=== PATIENT | female | born 1935 | race Caucasian/White ===

== ENCOUNTER 2021-11-22 | Outpatient (REF) | payer MEDICARE, OTHER, SELFPAY ==
[2021-11-22 15:53] LABS: Appearance Urine CLOUDY; Color Urine RED; Glucose Urine UA NEG (NEG); Leukocyte Esterase Urine 1+ (NEG); Nitrite Urine NEG (NEG); PH 6.5 (5.0-8.0); Specific Gravity - Urine 1.025 (1.005-1.025); UACC Culture Trigger YES; Urine Blood 3+ (NEG); Urine Ketones NEG (NEG); Urine Protein 2+ MG/DL (NEG-TRACE)
[2021-11-22 15:57] LABS: RBC Urine TNTC /HPF (0); Squamous Epithelial Cell Urine 2+ /LPF
== END 2021-11-22 00:01 | disposition home or self-care (01) ==
LOC: HO.LNP
PROVIDERS: Visit Provider Physician Assistant Medical
DX: N39.0 Urinary tract infection, site not specified (principal)
CPT/HCPCS: 81001; 87086

== ENCOUNTER 2023-10-12 15:10 | Outpatient (AMB) | payer MEDICARE, OTHER, SELFPAY ==
--- NOTE | 2023-10-12 15:47 | A.OFFPC_ITS ---
Vital Signs 10/12/23 15:49 Height 5 ft 4 in Weight 192 lb BMI 33.0 BP 120/84 Blood Pressure Location Lt brachial Position Sitting Pulse 72 Pulse Source Pulse Oximeter Pulse Oximetry (%) 98 Oxygen Delivery Method Room Air Intake Visit Reasons: [employer] Request PE Intake Note: Patient here to establish care Allergies atorvastatin [From LIPITOR] Allergy (Severe, Unverified 10/12/23 16:07) ANGIOEDEMA doxycycline [DOXYCYCLINE] Allergy (Severe, Unverified 10/12/23 16:07) ANAPHYLAXIS, ANGIOEDEMA Medication List - Last Reconciled 10/12/23 by ELIU Sandra-EDMAR amlodipine 5 mg PO DAILY aspirin 81 mg PO DAILY dulaglutide (Trulicity) mg subcut escitalopram oxalate 5 mg PO DAILY hydrochlorothiazide 12.5 mg PO DAILY levothyroxine 75 mcg PO DAILY lorazepam 0.5 mg PO DAILY PRN metformin 500 mg PO BID metoprolol tartrate 50 mg PO BID mirtazapine 7.5 mg PO BEDTIME rosuvastatin 20 mg PO BEDTIME Tobacco use date assessed: 10/12/23 Fall risk assessment: No Falls in past year Last assessed Fall Risk: 10/12/23 Dental Screening Dental Screen Date: 10/12/23 Did you have a dental visit in the last 12 months?: Yes Did you have a dental problem in the last 6 months where you did not have access to dental care?: No Was dental information given to patient?: Patient has dentist HPI [employer] Request PE HPI Details New pt is here for a PE. Will order labs. Pt does not need further mammograms. Pt is a diabetic, sees endo. She also follows up with cardiology. PFSH Surgical History Hx of appendectomy Hx of hysterectomy Social History Housing: Apartment Patient Tobacco Use Status: Former Tobacco user e-Cigarette/Vaping Use: Never Used Current occupational status: retired Cognitive needs: No Hearing needs: No Vision needs: Yes Questionnaire PHQ-9 Over the last 2 weeks, how often have you been bothered by any of the following problems? 1. Little interest or pleasure in doing things: not at all 2. Feeling down, depressed, or hopeless: not at all 3. Trouble falling or staying asleep, or sleeping too much: not at all 4. Feeling tired or having little energy: not at all 5. Poor appetite or overeating: not at all 6. Feeling bad about yourself - or that you are a failure or have let yourself or your family down: not at all 7. Trouble concentrating on things, such as reading the newspaper or watching television: not at all 8. Moving or speaking so slowly that other people could have noticed. Or the opposite - being so fidgety or restless that you have been moving around a lot more than usual: not at all 9. Thoughts that you would be better off or of hurting yourself in some way: not at all Total score: 0 Depression Screening Interpretation: Negative Depression Screening Done: Yes 16931 - PHQ-9 Billing: Yes Source: Developed by Drs. Fidel Rashid, Ale Clinton, Hank Cox and colleagues, with an educational margo from [employer]. Thrive Questionnaire Date Thrive assessed: 10/12/23 I am a: Patient What is your living situation today?: I have a steady place to live Within the past 12 months, did the food you bought not last and you didn't have the money to get more?: Never true Within the past 12 months, did you worry whether your food would run out before you got money to buy more?: Never true Do you have trouble paying for medicines?: No Do you have trouble getting transportation to medical appointments?: No Do you have trouble paying your heating and electricity bill?: No Do you have trouble taking care of your child, family member or friend?: No Do you have trouble with day-to-day activities such as bathing, preparing meals, shopping, managing finances, etc.?: No Are you currently unemployed and looking for a job?: No Are you interested in more education?: No Please select the resources that you would like help with: None THRIVE Score: 0 AUDIT C Alcohol Use Questionnaire (AUDIT-C) 1. How often do you have a drink containing alcohol?: Never 3. How often do you have six or more drinks on one occasion?: Never Total Score: 0 Score Reviewed/Action Taken: No CARLOS-7 AMB Questionnaire CARLOS-7 Date CARLOS - 7 assessed: 10/12/23 Feeling nervous, anxious, or on edge: 2 = More than half the days Not being able to stop or control worryin = Not at all Worrying too much about different things: 0 = Not at all Trouble relaxin = Not at all Being so restless that it is hard to sit still: 0 = Not at all Becoming easily annoyed or irritable: 0 = Not at all Feeling afraid as if something awful might happen: 0 = Not at all Total CARLOS-7 score (0-4 normal; 5-9 mild; 10-14 moderate; 15-21 severe): 2 Source: Developed by Drs. Fidel Rashid, Ale Clinton, Hank Cox and colleagues, with an educational margo from [employer]. Review of Systems Const Denies chills and Denies fever(s) Eyes Denies blurry vision ENT Denies vertigo, Denies dizziness and Denies sore throat Card Denies chest pain at rest, Denies chest pain with activity, Denies diaphoresis, Denies dyspnea and Denies dyspnea on exertion Resp Denies cough, Denies dyspnea, Denies dyspnea on exertion and Denies wheezing GI Denies abdominal pain, Denies melena, Denies hematochezia, Denies constipation, Denies diarrhea and Denies loose stools Denies hematuria Musc Denies numbness and Denies tingling Skin/Breast Denies lesions Neuro Denies vertigo, Denies dizziness, Denies numbness and Denies tingling Psych Denies anxiety, Denies depression, Denies homicidal ideation, Denies suicidal ideation and Denies other (substance abuse) Aller/Immun Denies wheezing Physical exam (Primary Care) Vital Signs: Last Vital Signs Pulse 72 10/12/23 15:49 BP 120/84 10/12/23 15:49 Pulse Ox 98 10/12/23 15:49 Oxygen Delivery Method Room Air 10/12/23 15:49 BMI result Body Mass Index 33.0 Tobacco/Smoking Status: Tobacco use Status Tobacco use date assessed 10/12/23 10/12/23 15:56 Patient Tobacco Use Status Former Tobacco user 10/12/23 15:56 e-Cigarette/Vaping Use Never Used 10/12/23 15:56 PHQ-9: PHQ-9 Score PHQ-9: Total score 0 10/12/23 16:10 Depression Screening Interpretation: Negative Thrive Assessment: Date of Thrive Assessment Date Thrive assessed 10/12/23 10/12/23 15:54 Const General: cooperative Nutritional Appearance: well nourished Orientation/consciousness: patient oriented x3 HENMT Head: Yes normal to inspection, Yes normocephalic and Yes atraumatic Ears: TM's normal bilaterally Eyes General: appearance normal, both eyes and all related structures Alignment and Position: alignment normal and position normal Neck Neck: Yes normal visual inspection and Yes no lymphadenopathy Thyroid: Thyroid normal Resp Effort & Inspection: normal respiratory effort Auscultation: clear to auscultation bilaterally Cardio Rate: regular rate Rhythm: regular rhythm Heart sounds: S1 normal heart sound present, S2 normal heart sound present and Murmur heart sound present systolic GI Palpation (GI): Soft to palpation and nontender Auscultation: normal bowel sounds Skin Rashes: no rashes Neuro General: patient oriented x3, moves all extremities, no focal motor deficits and deep tendon reflexes 2+ bilaterally Romberg Test: Negative Psych Appearance: grossly normal Mental Status: mental status grossly normal Speech and movement: Normal speech and movement present Affect: normal affect Attitude: cooperative Thought process: Normal thought process present Thought content: Normal thought content present Insight: Good insight present (Psych) Judgement: Good judgement present (Psych) Assessment and Plan Assessment & Plan (1) Physical exam: Code(s): Z. - Encounter for general adult medical examination without abnormal fin dings Plan: Labs ordered Plan The patient agreed to the use of a medical receptionist for this encounter. Scribed for AIDEN Campbell by Daxa Gonzalez medical receptionist, on 10/12/2023 at 16:05 EST. Orders: Orders Comprehensive One[employer]. Panel Fast Today Z00.00 - Encounter for general adult medical examination without abnormal findings TSH reflex Free T4 Today Z00.00 - Encounter for general adult medical examination without abnormal findings UA CC w/rflx Micro + Cult Today Z00.00 - Encounter for general adult medical examination without abnormal findings Vitamin D 25-OH Total Today Z00.00 - Encounter for general adult medical examination without abnormal findings Complete Blood Count Auto Diff Today Z00.00 - Encounter for general adult medical examination without abnormal findings Lipid Panel Today Z00.00 - Encounter for general adult medical examination without abnormal findings Coding Level of Care Code New Pt Prev Care >65yr (18149) Diagnoses Physical exam Z00.00
[2023-10-12 15:49] VITALS: BP 120/84; PULSE 72; O2SAT 98; BMI 33.0
== END 2023-10-12 16:22 | disposition home or self-care (01) ==
PROVIDERS: PCP Nurse Practitioner Family; Visit Provider Nurse Practitioner Family
DX: Z00.00 Encounter for general adult medical examination without abnormal findings (principal)
CPT/HCPCS: 99387

== ENCOUNTER 2024-03-03 14:21 | Outpatient (REF) | payer MEDICARE, OTHER, SELFPAY ==
--- NOTE | ~2024-03-03 | XR_ITS ---
EXAMINATION: XR ANKLE, RIGHT XR FOOT, RIGHT CLINICAL INFORMATION: Pain. COMPARISON: No prior study available for comparison. TECHNIQUE: AP, oblique, and lateral views of the right ankle and foot. FINDINGS: RIGHT ANKLE: Minimally displaced, oblique fracture through the distal aspect of the lateral malleolus with the fracture gap measuring up to 0.1 cm. No additional fracture. No dislocation. No joint space narrowing or marginal osteophytes. No osseous erosion. Prominent circumferential soft tissue swelling. RIGHT FOOT: Mildly displaced, oblique fracture through the base of the fifth metatarsal with the fracture gap measuring up to 0.1 cm. The fracture line contacts the fifth metatarsophalangeal articular surface. Possible additional nondisplaced, oblique fracture through the proximal metaphysis of the fourth metatarsal. No dislocation. Mild joint space with small marginal osteophytes at the medial cuneonavicular joint and the first metatarsophalangeal joint. No osseous erosion. Plantar and dorsal calcaneal spurs. XR/XR foot RT min 3V IMPRESSION: RIGHT ANKLE: Minimally displaced, oblique fracture through the distal aspect of the lateral malleolus. Prominent circumferential soft tissue swelling. RIGHT FOOT: 1. Mildly displaced, oblique fracture through the base of the fifth metatarsal which contacts the fifth metatarsophalangeal articular surface. Possible nondisplaced, oblique fracture through the proximal metaphysis of the fourth metatarsal. 2. 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 Electronically signed by: Jacky Beckham MD 03/03/2024 04:36 PM EDT
--- NOTE | ~2024-03-03 | XR_ITS ---
EXAMINATION: XR ANKLE, RIGHT XR FOOT, RIGHT CLINICAL INFORMATION: Pain. COMPARISON: No prior study available for comparison. TECHNIQUE: AP, oblique, and lateral views of the right ankle and foot. FINDINGS: RIGHT ANKLE: Minimally displaced, oblique fracture through the distal aspect of the lateral malleolus with the fracture gap measuring up to 0.1 cm. No additional fracture. No dislocation. No joint space narrowing or marginal osteophytes. No osseous erosion. Prominent circumferential soft tissue swelling. RIGHT FOOT: Mildly displaced, oblique fracture through the base of the fifth metatarsal with the fracture gap measuring up to 0.1 cm. The fracture line contacts the fifth metatarsophalangeal articular surface. Possible additional nondisplaced, oblique fracture through the proximal metaphysis of the fourth metatarsal. No dislocation. Mild joint space with small marginal osteophytes at the medial cuneonavicular joint and the first metatarsophalangeal joint. No osseous erosion. Plantar and dorsal calcaneal spurs. XR/XR ankle RT 2V IMPRESSION: RIGHT ANKLE: Minimally displaced, oblique fracture through the distal aspect of the lateral malleolus. Prominent circumferential soft tissue swelling. RIGHT FOOT: 1. Mildly displaced, oblique fracture through the base of the fifth metatarsal which contacts the fifth metatarsophalangeal articular surface. Possible nondisplaced, oblique fracture through the proximal metaphysis of the fourth metatarsal. 2. 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 Electronically signed by: Jacky Beckham MD 03/03/2024 04:36 PM EDT
== END 2024-03-03 14:22 | disposition home or self-care (01) ==
LOC: HO.HMGCX 14:21
PROVIDERS: PCP Nurse Practitioner Family; Visit Provider Physician Assistant Medical
DX: M25.571 Pain in right ankle and joints of right foot (principal); M79.671 Pain in right foot
CPT/HCPCS: 73600; 73630; 99212

== ENCOUNTER 2024-03-03 14:21 | Outpatient (AMB) | payer MEDICARE, OTHER, SELFPAY ==
--- NOTE | 2024-03-03 14:22 | MHC.OFFWIV ---
Intake Vital Signs 03/03/24 14:23 Weight 195 lb BP 130/80 Blood Pressure Location Rt brachial Position Sitting Pulse 58 Pulse Source Pulse Oximeter Pulse Oximetry (%) 96 Oxygen Delivery Method Room Air Intake Visit Reasons: EP RT foot injury Intake Note: Patient here for right foot injury, foot is swollen and bruised. Patient Tobacco Use Status: Former Tobacco user Allergies atorvastatin [From LIPITOR] Allergy (Severe, Unverified 03/03/24 14:24) ANGIOEDEMA doxycycline [DOXYCYCLINE] Allergy (Severe, Unverified 03/03/24 14:24) ANAPHYLAXIS, ANGIOEDEMA HPI HPI Comments History of Present Illness Details This is an 88-year-old female who presented to the walk-in clinic complaining of right foot/ankle pain and swelling. Patient states she fell 3 days ago. She states she tripped over her rug causing her to fall and hit her right foot/ankle on the glass window. She is unsure if she twisted her ankle. She denies any numbness/weakness/paresthesias of her foot or leg. PFSH Surgical History Hx of appendectomy Hx of hysterectomy Social History Housing: Apartment Patient Tobacco Use Status: Former Tobacco user e-Cigarette/Vaping Use: Never Used Current occupational status: retired Cognitive needs: No Hearing needs: No Vision needs: Yes Review of Systems Const All systems reviewed & are unremarkable except as noted in HPI and below Reports no additional complaints Eyes Reports no additional complaints ENT Reports no additional complaints Card Reports no additional complaints Resp Reports no additional complaints GI Reports no additional complaints Reports no additional complaints Musc Reports no additional complaints Skin/Breast Reports system reviewed and no additional complaints, except as documented Neuro Reports no additional complaints Psych Reports no additional complaints Endo Reports no additional complaints Aleks/Lymph Reports no additional complaints Aller/Immun Reports no additional complaints Physical Exam Vital Signs: Last Vital Signs Pulse 58 03/03/24 14:23 BP 130/80 03/03/24 14:23 Pulse Ox 96 03/03/24 14:23 Oxygen Delivery Method Room Air 03/03/24 14:23 Const Other: Vital signs reviewed. Constitutional: Non-toxic appearing. No acute distress. Well-developed and well-nourished. HEENT: Normocephalic and atraumatic. Skin: Warm and dry. No rashes or lesions noted. Neck: Full and painless range of motion. Cardio: Regular rate. No JVD. Pulmonary: No respiratory distress. No accessory muscle usage. Gastrointestinal: Soft, nontender, and nondistended in all 4 quadrants. Musculoskeletal: There is diffuse swelling of the right foot and ankle. There is ecchymosis to the lateral malleolus and lateral aspect of the right foot. There is tenderness to palpation of the lateral malleolus and along the 5th metatarsal. There is no tenderness to palpation of the medial malleolus with the medial aspect of the foot. There is otherwise no tenderness to palpation of the fibula/tibia. She has decreased range of motion with plantar flexion, dorsiflexion, inversion, and eversion due to pain and swelling. Neuro: Alert and oriented x4. Cranial nerves 2-12 grossly intact. No focal deficits appreciated. Psych: Normal mood and affect. Assessment & Plan Assessment & Plan (1) Right foot pain: Code(s): M79.671 - Pain in right foot (2) Right ankle pain: Code(s): M25.571 - Pain in right ankle and joints of right foot Qualifiers: Chronicity: acute Qualified Code(s): M25.571 - Pain in right ankle and joints of right foot Plan This is an 88-year-old female who presented to the walk-in clinic complaining of right lateral foot/ankle pain status post mechanical fall that occurred 3 days ago. On physical examination, there is diffuse swelling of the right foot and ankle with ecchymosis to the lateral aspect and tenderness to palpation of the lateral malleolus and 5th metatarsal with decreased range of motion of the ankle due to pain/swelling. Differential diagnosis includes acute fracture versus lateral sprain/strain. An x-ray of the right foot and right ankle was obtained, which showed a fracture of the proximal 5th metatarsal as well as a possible fracture of the lateral malleolus and a possible fracture of the 4th metatarsal. Patient was placed in a walking boot and given an urgent referral to orthopedics. Recommended rest/activity modification, ice to the area, elevation of the extremity, and continue with acetaminophen for pain management. Patient was advised to follow-up here or proceed to the emergency room if she were to develop any persistent or worsening symptoms. Patient verbalized understanding and is agreeable with the plan. Orders: Orders XR ankle RT 2V Today M25.571 - Pain in right ankle and joints of right foot Referrals Orthopedics Referral S92.351A - Displaced fracture of fifth metatarsal bone, right foot, initial encounter for closed fracture Coding Level of Care Code Est Pt Level 3 (97012) Diagnoses Right foot pain M79.671 Acute right ankle pain M25.571 Chronicity: acute
[2024-03-03 14:23] VITALS: BP 130/80; PULSE 58; O2SAT 96
== END 2024-03-03 16:35 | disposition home or self-care (01) ==
PROVIDERS: PCP Nurse Practitioner Family; Visit Provider Physician Assistant Medical
DX: M79.671 Pain in right foot (principal); M25.571 Pain in right ankle and joints of right foot

== ENCOUNTER 2024-03-21 13:39 | Outpatient (AMB) | payer MEDICARE, OTHER, SELFPAY ==
--- NOTE | 2024-03-21 13:44 | MHC.OFFVIS ---
Intake Visit Reasons: FC - right displaced metatarsal fx, DOI 02/29/24 Intake Note: Eve is a 89 year old female who presents to the office today with her son for right displaced metatarsal fx, DOI 02/29/24. Patient reports she tripped over her rug causing her to fall and hit her right foot/ankle on the glass window. Patient went to urgent care and had X-rays done on 03/03/24. Patient reports that she is doing well she has intermittent pain, worsens with activity. She takes ibuprofen for her pain which is helpful. Allergies atorvastatin [From LIPITOR] Allergy (Severe, Unverified 03/03/24 14:24) ANGIOEDEMA doxycycline [DOXYCYCLINE] Allergy (Severe, Unverified 03/03/24 14:24) ANAPHYLAXIS, ANGIOEDEMA HPI HPI FC - right displaced metatarsal fx, DOI 02/29/24: Details: Patient is a 89-year-old female who presents for evaluation of right 4th and 5th metatarsal fractures, date of injury 02/29/2024. Patient states that she tripped and fell on a rug and hit foot and ankle, and immediately noticed pain. Patient was previously evaluated in the walk-in clinic, where x-rays revealed minimally displaced fractures of the right 4th and 5th metatarsals. Patient was placed in a walking boot at that time. Today, the patient reports that her pain has improved significantly, and then she has been wearing the walking boot whenever she is bearing weight. No other acute complaints or concerns at this time [facility] Surgical History (Updated 03/21/24 @ 13:55 by Shayy Cook [facility]) History of colon resection History of rectal surgery History of hemiarthroplasty of right hip History of hemiarthroplasty of left hip Hx of appendectomy Hx of hysterectomy Social History Housing: Apartment Patient Tobacco Use Status: Former Tobacco user e-Cigarette/Vaping Use: Never Used Current occupational status: retired Cognitive needs: No Hearing needs: No Vision needs: Yes Review of Systems Const All systems reviewed & are unremarkable except as noted in HPI and below Physical Exam Extrem Other: On inspection, there is no visible deformity of the patient's right foot Mild edema noted over the 4th and 5th metatarsals No ecchymosis noted No erythema or evidence of infection noted Patient does report some very mild tenderness to palpation about the 4th and 5th metatarsal bases Patient reports that this pain has improved significantly since date of injury Patient was able to plantar flex and dorsiflex the right foot with minimal discomfort Patient is able to flex and extend all digits of the right foot fully and without difficulty Office Procedures AMB Fracture Care Fracture Billing Code: Fracture Billing Code Results Reviewed Results Reviewed: X-rays obtained in the office today and independently reviewed by me, Aravind Sage PA-C, demonstrate minimally displaced fractures of the 4th and 5th metatarsal bases of the right foot. Assessment & Plan Assessment & Plan (1) Fracture of fourth metatarsal bone of right foot: Code(s): S92.341A - Displaced fracture of fourth metatarsal bone, right foot, initial encounter for closed fracture Category: Medical (2) Fracture of fifth metatarsal bone of right foot: Code(s): S92.351A - Displaced fracture of fifth metatarsal bone, right foot, initial encounter for closed fracture Category: Medical Plan 1. Right 4th metatarsal base fracture 2. Right 5th metatarsal base fracture, consistent with Hanks fracture Date of injury 02/29/2024 Patient is educated about this condition Patient is educated about the typical recovery course Patient is educated that she can weightbear as tolerated in the walking boot Patient is advised that she should continue walking boot while weight-bearing until follow-up Patient was also educated she should continue any significant impact activities to the right foot Patient was amenable to this plan Patient will follow-up in 3-4 weeks with repeat x-rays, sooner any acute concerns Orders: Orders XR foot RT min 3V 03/21/24 M79.673 - Pain in unspecified foot Coding Level of Care Code New Pt Level 3 (55305) Diagnoses Fracture of fourth metatarsal bone of right foot S92.341A Fracture of fifth metatarsal bone of right foot S92.351A CPT Codes Fracture Care - Fracture Billing Code: Fracture Billing Code ([id number])
== END 2024-03-21 14:34 | disposition home or self-care (01) ==
PROVIDERS: PCP Nurse Practitioner Family; Visit Provider Physician Assistant
DX: S92.341A Displaced fracture of fourth metatarsal bone, right foot, initial encounter for closed fracture (principal); S92.351A Displaced fracture of fifth metatarsal bone, right foot, initial encounter for closed fracture; W01.0XXA Fall on same level from slipping, tripping and stumbling without subsequent striking against object, initial encounter
CPT/HCPCS: 99203

== ENCOUNTER 2024-03-21 14:34 | Outpatient (REF) | payer MEDICARE, OTHER, SELFPAY | END 2024-03-21 14:35 | disposition home or self-care (01) | LOC: HO.HOSX 14:34 | PROVIDERS: Visit Provider Physician Assistant | DX: M79.671 Pain in right foot (principal); S92.341A Displaced fracture of fourth metatarsal bone, right foot, initial encounter for closed fracture; S92.351A Displaced fracture of fifth metatarsal bone, right foot, initial encounter for closed fracture | CPT/HCPCS: 73630; 99202 ==

== ENCOUNTER 2024-04-18 08:03 | Outpatient (REF) | payer MEDICARE, OTHER, SELFPAY ==
--- OUTSIDE RECORDS SUMMARY | 2024-04-19 18:43 | XMS_ITS | Patient Health Record ---
Author Organization [facility] Address [address] [facility] [place] [address] Care Team Providers Care Safety Physician Name Role Phone Jose Schultz Primary Care Provider Carly Christensen Unavailable [phone] Vishnu Forbes Unavailable [phone] Allergies Allergen (clinical drug ingredient) Drug/Non Drug Allergy documented on EMR Reaction Allergy Type Onset Date Status atorvastatin Lipitor anaphylaxis Drug Allergy Ac tive doxycycline Doxycycline anaphylaxis Drug Allergy A ctive Results Component Value Reference Range Notes HEMOGLOBIN A1C (GLYCOHEMOGLO BIN) Reviewed date:02/23/2024 02:28:48 PM Interpretation: Performing Lab: Notes/Report: TOTAL HEMOGLOBIN (HGBA1C) 6.8 Reason For Referral No Information Medications Medication SIG (Take, Route, Frequency, Duration) Notes Start Date End Date Status Metoprolol Tartrate 50 MG TAKE 1 TABLET BY MOUTH TWICE A DAY Oral for 90 Active Zoloft Not-Taking metFORMIN HCl 500 MG as directed Orally Twice a day Active hydroCHLOROthiazide 12.5 MG TAKE 1 CAPSU LE BY MOUTH EVERY DAY FOR 90 DAYS Oral for 90 Active Crestor Not-Taking Levothyroxine Sodium 75 MCG TAKE 1 TABLE T BY MOUTH EVERY MORNING ON AN EMPTY STOMACH Orally Once a day Active dexAMETHasone Sodium Phosphate Not-Taking Water Pills Active Keflex 500 MG 1 capsule Orally every 8 hrs for 10 days Not-Taking amLODIPine Besylate 5 MG TAKE 1 TABLET B Y MOUTH EVERY DAY Oral for 90 Active Sertraline HCl 100 MG TAKE 1 TABLET BY MOUTH EVERY DAY Oral for 90 Not-Taking Lasix Active Gabapentin 400 MG 1 capsule Orally Once a day hs for 10 days 10/21/2017 Not-Taking Trulicity Active Keflex 500 MG 1 capsule Orally every 12 hrs for 10 day(s) 10/21/2017 Not-Taking Paxil Not-Taking CeleXA Not-Taking BuSpar Not-Taking Naproxen 500 MG 1 tablet with food or milk as needed Orally every 12 hrs for 30 days PRN 10/21/2017 Active ASA Unknown Immunizations Vaccine Route Administration Date Status Comme nts COVID-19 Pfizer BioNTech Vaccine Unknown 04/07/2022 Administered 06/16/20,07/04/20 01/14/21,09/08/21 Influenza Unknown 03/10/2016 Administered Influenza Unknown 04/07/2022 Administered Social History Tobacco Use: Social History Observation Description Date Details (start date - stop date) Former Smoker NA - NA Tobacco Use/Smoking Question Answer Notes Are you a: former smoker Additional Findings: Tobacco Non-User Current no n-smoker Alcohol Screen Question Answer Notes Did you have a drink contain ing alcohol in the past year? Yes How often did you have a dri nk containing alcohol in the past year? 2 to 4 times a month (2 points) Points 2 Interpretation Negative Tobacco use other than smoking: Question Answer Notes Are you an other tobacco user? No Problems Problem Type SNOMED Code ICD Code Onset Dates Problem Status W/U Status Risk Notes Problem Neurologic disorder associated with type II diabetes mellitus (476680959) 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 confirmed Problem Localized, primary osteoarthritis of the ankle and/or foot (620997980) Primary osteoarthritis, left ankle and foot (M19.072) Active confirmed Problem Acquired hammer toe of right foot (2405455507302083) Other hammer toe(s) (acquired), right foot (M20.41) Active confirmed Problem Acquired hammer toe of left foot (4882672052445738) Other hammer toe(s) (acquired), left foot (M20.42) Active confirmed Vital Signs Blood pressure diastolic 80 mm Hg 11/10/2023 Height 5 ft 4 in in 02/23/2024 Blood pressure systolic 128 mm Hg 11/10/2023 Weight 191 lbs 02/23/2024 BMI 32.78 kg/m2 02/23/2024 Procedures Procedure Date Ordered Date Performed Result Body Sit e 36116-PGOEXQF NAIL, 6 OR MORE 02/23/2024 N/A 07459-CEZX SKIN LESIONS, 2 TO 4 02/23/2024 N/A Encounters Encounter Location Date Provider Diagnosis [address] [address] 08/09/2023 Vishnu Forbes Pain in right foot M79.671 ; Ingrowing nail L60.0 ; Pain in left foot M79.672 ; Tinea unguium B35.1 ; Type 2 diabetes mellitus with other diabetic neurological complication E11.49 ; Pain in right toe(s) M79.674 ; Metatarsalgia, left foot M77.42 ; Pain in left toe(s) M79.675 and Primary osteoarthritis, left ankle and foot M19.[address] [address] 11/10/2023 Vishnu Forbes Pain in right foot M79.671 ; Ingrowing nail L60.0 ; Pain in left foot M79.672 ; Tinea unguium B35.1 ; Type 2 diabetes mellitus with other diabetic neurological complication E11.49 ; Pain in right toe(s) M79.674 ; Metatarsalgia, left foot M77.42 ; Pain in left toe(s) M79.675 and Primary osteoarthritis, left ankle and foot M19.[address] [address] 02/23/2024 Carly Estrada Tinea unguium B35.1 and Type 2 diabetes mellitus with other diabetic neurological complication E11.[address] [address] 02/08/2024 Carly Estrada [address] [address] 03/17/2024 Carly Estrada Assessments Encounter Date Diagnosis (ICD Code) Assessment Notes Treatment Notes Treatment Clinical Notes Section Notes 08/09/2023 Pain in right foot (ICD-10 - M79.671) 11/10/2023 Pain in right foot (ICD-10 - M79.671) 02/23/2024 Tinea unguium (ICD-10 - B35.1) 02/23/2024 Type 2 diabetes mellitus with other diabetic neurological complication (ICD-10 - E11.49) 11/10/2023 Ingrowing nail (ICD-10 - L60.0) 08/09/2023 Ingrowing nail (ICD-10 - L60.0) 08/09/2023 Pain in left foot (ICD-10 - M79.672) 11/10/2023 Pain in left foot (ICD-10 - M79.672) 11/10/2023 Tinea unguium (ICD-10 - B35.1) 08/09/2023 Tinea unguium (ICD-10 - B35.1) 08/09/2023 Type 2 diabetes mellitus with other diabetic neurological complication (ICD-10 - E11.49) 11/10/2023 Type 2 diabetes mellitus with other diabetic neurological complication (ICD-10 - E11.49) 11/10/2023 Pain in right toe(s) (ICD-10 - M79.674) 08/09/2023 Pain in right toe(s) (ICD-10 - M79.674) 08/09/2023 Metatarsalgia, left foot (ICD-10 - M77.42) 11/10/2023 Metatarsalgia, left foot (ICD-10 - M77.42) 11/10/2023 Pain in left toe(s) (ICD-10 - M79.675) 08/09/2023 Pain in left toe(s) (ICD-10 - M79.675) 08/09/2023 Primary osteoarthritis, left ankle and foot (ICD-10 - M19.072) 11/10/2023 Primary osteoarthritis, left ankle and foot (ICD-10 - M19.072) Plan Of Treatment Pending Test Test Name Order Date X ray : Foot, left 2V 11/04/2017 X ray : Foot, left 3V 11/09/2017 X ray : Foot, left 3V 11/18/2017 X ray : Foot, left 3V 12/01/2017 X ray : Foot, left 3V 12/13/2017 X ray : Foot, left 3V 01/17/2018 X ray : Foot, left 3V 09/13/2017 X ray : Foot, left 3V 02/28/2018 60653-KIRZQAZ NAIL, 6 OR MORE 02/28/2018 46685-CTGEKDO NAIL, 6 OR MORE 11/18/2017 69893-XTQCSPO NAIL, 6 OR MORE 02/23/2024 34486-DNGBLDM NAIL, 6 OR MORE 02/19/2011 34968-IPSGGHU NAIL, 6 OR MORE 06/10/2011 96779-IVHZXGX NAIL, 6 OR MORE 01/18/2012 07728-PSKZVVW NAIL, 6 OR MORE 04/18/2012 10922-COELULN NAIL, 6 OR MORE 11/09/2011 17083-EBQZIOV NAIL, 6 OR MORE 07/18/2012 08804-OFYLFWL NAIL, 6 OR MORE 01/02/2013 91597-CGMTUHV NAIL, 6 OR MORE 04/03/2013 46265-FHBESGW NAIL, 6 OR MORE 07/31/2013 51747-QKQMAAY NAIL, 6 OR MORE 10/23/2013 68691-LGVAMFF NAIL, 6 OR MORE 01/10/2014 76265-JQBALUI NAIL, 6 OR MORE 03/29/2014 59566-NGBGEPK NAIL, 6 OR MORE 06/07/2014 21651-KRJNGMS NAIL, 6 OR MORE 08/20/2014 20723-NZOXBQN NAIL, 6 OR MORE 11/15/2014 37687-BHWFOOO NAIL, 6 OR MORE 04/11/2015 85376-TRVRUWD NAIL, 6 OR MORE 07/11/2015 58242-UCTNBFL NAIL, 6 OR MORE 10/21/2015 95181-WUTJPCW NAIL, 6 OR MORE 02/10/2016 86971-XDUESRF NAIL, 6 OR MORE 06/15/2016 55251-CYQNYHI NAIL, 6 OR MORE 10/12/2016 36899-AIXBWKC NAIL, 6 OR MORE 02/11/2017 67424-WRYJYGS NAIL, 6 OR MORE 06/14/2017 26268-UWDNHMC NAIL, 6 OR MORE 09/13/2017 30495-Ofyy Destruction, -14 02/19/2011 43599-Yrig Destruction, -14 01/18/2012 54604-Ykqw Destruction, -06/10/2011 63806-Aqtz Destruction, -08/31/2011 30549-Qwtb Destruction, -14 11/09/2011 87076-Meaymzrs Plate 11/09/2011 25207-Qjujstdd Plate 08/31/2011 21046-Xxzoawid Plate 06/10/2011 74668-Mcqviktz Plate 01/18/2012 53090-Gnragaeb Plate 07/18/2012 58091-Pattjdsp Plate 04/18/2012 83690-Dkxehbtw Plate 01/02/2013 61068-Meaxzefk Plate 07/31/2013 36906-Qljozuok Plate 04/03/2013 65742-Dsvfwtui Plate 03/29/2014 08428-Lsrtmnuo Plate 05/24/2013 67600-Lscbngep Plate 01/10/2014 14290-Pdhtpzbf Plate 10/23/2013 03292-Tgecertb Plate 06/14/2017 07871-Xramdhns Plate 02/11/2017 32176-Ybszqxnb Plate 03/25/2015 39238-Fmvtpvzg Plate 11/15/2014 88812-Scqwnxyl Plate 08/20/2014 20687-Bwwqgcct Plate 06/07/2014 56714-Dnvauond Plate 11/18/2017 77636-Fwakqbey Plate Each Additional 49106-Ihrqjbbs Plate Each Additional 43482-Smtfavos Plate Each Additional 01/2015 99177-Eamxuhmb Plate Each Additional 42929-Rfqcxkxp Plate Each Additional 02894-Abrsbukz Plate Each Additional 27659- Debride <25 sq cm 04/11/2015 24612-CQKQ SKIN LESIONS, OVER 4 11/16/19 15 11934-ZOHR SKIN LESIONS, OVER 4 08/21/19 15 52565-IISK SKIN LESIONS, OVER 4 06/07/19 15 31049-LMDK SKIN LESIONS, OVER 4 02/12/20 17 42608-UATU SKIN LESIONS, OVER 4 09/14/19 18 87932-DMSK SKIN LESIONS, OVER 4 06/15/19 17 57669-CXJX SKIN LESIONS, OVER 4 10/13/19 17 93123-LWKX SKIN LESIONS, OVER 4 04/18/20 12 92460-MIWL SKIN LESIONS, OVER 4 07/19/19 13 66255-BUBW SKIN LESIONS, OVER 4 01/03/20 13 46922-HCEQ SKIN LESIONS, OVER 4 04/03/20 13 32071-KIQF SKIN LESIONS, OVER 4 08/01/19 14 79923-EMZZ SKIN LESIONS, OVER 4 03/29/20 14 60937-BDVM SKIN LESIONS, OVER 4 10/24/19 14 55505-QSYJ SKIN LESIONS, OVER 4 01/11/20 14 90719-OPJZ SKIN LESIONS, OVER 4 06/05/19 21 37199-RXOJ SKIN LESIONS, OVER 4 10/03/19 21 11290-JUIF SKIN LESIONS, 2 TO 4 01/07/20 21 73917-UEQE SKIN LESIONS, 2 TO 4 04/14/20 21 42315-LRZF SKIN LESIONS, 2 TO 4 07/29/19 22 73050-MIPU SKIN LESIONS, 2 TO 4 02/23/20 24 67544-UIAG SKIN LESIONS, 2 TO 4 02/29/20 18 63727-IKXV SKIN LESIONS, 2 TO 4 09/02/19 19 61374-EBAL SKIN LESIONS, 2 TO 4 12/30/19 19 67152-TQGI SKIN LESIONS, 2 TO 4 04/26/20 19 35894-OBMO SKIN LESIONS, 2 TO 4 07/31/19 20 96009-MDZN SKIN LESIONS, 2 TO 4 12/04/19 20 54732-CVLB SKIN LESIONS, 2 TO 4 02/05/20 20 34166-JORI SKIN LESIONS, 2 TO 4 11/19/19 18 53112-ASUW SKIN LESIONS, 2 TO 4 02/10/20 16 43172-YKSU SKIN LESIONS, 2 TO 4 10/21/19 16 19819-CRFG SKIN LESIONS, 2 TO 4 07/11/19 16 66701-HJHC SKIN LESIONS, 2 TO 4 06/14/19 18 83836-HFHY SKIN LESIONS, 2 TO 4 04/11/20 15 78523- [place] Boot 11/09/2017 57123- Nail Unit Biopsy 01/17/2018 49408- Nail Unit Biopsy 09/13/2017 Next Appt Details Provider Name:Sarah goodrich, 05/31/2024 02:00:00 PM, [address] [place], [address], Insurance Providers Payer Name Payer Address Payer Phone Subscriber Number Group Number Insured Name Patient Relationship to Insured Coverage Start Date Coverage End Date Medicare [facility] [employer] [address] [place] [phone] [id number] Eve Musa Self - patient is the insured 5 [facility] [address] [place] [address] [id number] Eve Musa Self - patient is the insured Medical (General) History Medical History History ICD Code measles hypertension diverticulitis chicken pox Cholesterol Arthritis Anxiety disorder type II diabetes Cataracts Surgical History Surgery Date(Month/Year) colon/intestinal surgery 2005 hysterectomy 1965 tubal ligation 1955 Ostectomy L3rdMT, HT L2nd,3rd 10/28/17 cataract surgery Hospitalization History Reason Date(Month/Year) [facility] - broke hip/pt fell 04/28/2018 [facility]
--- OUTSIDE RECORDS SUMMARY | 2024-04-19 18:43 | XMS_ITS ---
Author Organization [facility] Address [address] [place] [address] Care Team Providers Care Offset Press Operator Name Role Phone Jose Schultz Primary Care Provider Unav juanable Estrada, Carly Unavailable [phone] Vishnu Forbes Unavailable [phone] REASON FOR VISIT Transfer to Different Provider Encounters Encounter Location Date Provider Diagnosis [address] [address] 04/12/2024 Vishnu Forbes Plan Of Treatment Next Appt Details Provider Name:Sarah goodrich, 05/31/2024 02:00:00 PM, [address] [place] [address], [address], Progress Notes * Eve PAREDES ADOB:1934 (89 yo F)Acc No.[id number]:04/12/2024 Progress Note Patient:?Eve PAREDES Provider:?Vishnu Forbes DPM :1935???Age:89 Y???Sex:Female D ate:04/12/2024 [address] [facility], [place] Pcp:HI Campbell Subjective: * Chief Complaints: * ???1. Transfer to Different Provider. * Medical History:? Objective: * Vitals:? Assessment: Plan: * Treatment: * Images: * The named appointment provid er may or may not be the originator of this progress note, and it is not deemed complete until electronically signed by the appointment provider. Sign off status: Pending * Provider:Salbador Forbes DPM Date:? 024 Generated for Dandy mccarty/Patric/Macarena on:?04/19/2024 06:42 PM EST
--- OUTSIDE RECORDS SUMMARY | 2024-04-19 18:43 | XMS_ITS ---
Author Organization [facility] Address [address] [place] [address] Care Team Providers Care Tomato Paste Maker Name Role Phone Jose Schlutz Primary Care Provider Unav ailable Carly Estrada Unavailable [phone] REASON FOR VISIT r/s Encounters Encounter Location Date Provider Diagnosis [facility] [address] [place] [address] 03/17/2024 Carly Estrada Plan Of Treatment Next Appt Details Provider Name:Sarah goodrich, 05/31/2024 02:00:00 PM, [address] [place], [address], Progress Notes * Eve PAREDES ADOB:1934 (89 yo F)Acc No.[id number]:03/17/2024 Patient:?Eve Paredes :1935???Age:89 Y???Sex:Female Address:[address], [place], [address] * true * Date:? Generated for Zhaoi lul/Patric/eTransmitting on:?04/19/2024 06:42 PM EST
--- OUTSIDE RECORDS SUMMARY | 2024-04-19 18:43 | XMS_ITS ---
Author Organization [facility] Address [address] [place] [address] Care Team Providers Care News Reel Cameraman Name Role Phone Jose Schultz Primary Care Provider Unav ailable Carly Estrada Unavailable [phone] Encounters Encounter Location Date Provider Diagnosis [address] [address] 04/12/2024 Carly Estrada Plan Of Treatment Next Appt Details Provider Name:Sarah goodrich, 05/31/2024 02:00:00 PM, [address] [place], [address], Progress Notes * Eve PAREDES ADOB:1934 (89 yo F)Acc No.[id number]:04/12/2024 Progress Note Patient:?Eve PAREDES Provider:?Carly Estrada DPM :1935???Age:89 Y???Sex:Female D ate:04/12/2024 Address[address], [place] Pcp:HI Campbell Subjective: * Chief Complaints: * ??? * Medical History:? Objective: * Vitals:? Assessment: Plan: * Treatment: * Images: * The named appointment provid er may or may not be the originator of this progress note, and it is not deemed complete until electronically signed by the appointment provider. Sign off status: Pending * Provider:?Carly Estrada DPM Date:?1 06/13/2023 Generated for Dandy mccarty/Patric/Macarena on:?04/19/2024 06:42 PM EST
== END 2024-04-18 08:04 | disposition home or self-care (01) ==
LOC: HO.HOSX 08:03
DX: S92.351D Displaced fracture of fifth metatarsal bone, right foot, subsequent encounter for fracture with routine healing (principal)
CPT/HCPCS: 73630; 99212

== ENCOUNTER 2024-04-18 14:12 | Outpatient (AMB) | payer MEDICARE, OTHER, SELFPAY ==
--- NOTE | 2024-04-18 14:14 | MHC.OFFVIS ---
Intake Visit Reasons: OV-right displaced metatarsal fx, DOI 02/29/24 Intake Note: Eve is a 89 year old female who presents to the office today for her right displaced metatarsal fx, DOI 02/29/24. Pt states she is feeling well and has been wearing the boot as directed. Pt states she will have pain once in a while but states the pain doesn't last long. Allergies atorvastatin [From LIPITOR] Allergy (Severe, Unverified 04/18/24 14:30) ANGIOEDEMA doxycycline [DOXYCYCLINE] Allergy (Severe, Unverified 04/18/24 14:30) ANAPHYLAXIS, ANGIOEDEMA HPI HPI OV-right displaced metatarsal fx, DOI 02/29/24: Details: Patient 9 old female presents for 4 week follow-up evaluation of right 5th metatarsal fracture, date injury 02/29/2024. Today, the patient reports that she is feeling much better, and only experiences occasional ?twinges? of minor pain, and these typically resolve after a few seconds. Patient states she has been wearing the boot as directed at last visit. No other acute complaints or concerns at this time. [facility] Surgical History History of colon resection History of rectal surgery History of hemiarthroplasty of right hip History of hemiarthroplasty of left hip Hx of appendectomy Hx of hysterectomy Social History Housing: Apartment Patient Tobacco Use Status: Former Tobacco user e-Cigarette/Vaping Use: Never Used Current occupational status: retired Cognitive needs: No Hearing needs: No Vision needs: Yes Review of Systems Const All systems reviewed & are unremarkable except as noted in HPI and below Physical Exam Extrem Other: On inspection, there is no visible deformity of the patient's right foot Mild edema noted over the 4th and 5th metatarsals No ecchymosis noted No erythema or evidence of infection noted Patient does report some very mild tenderness to palpation about the 4th and 5th metatarsal bases, improved from last visit Patient reports that this pain has improved significantly since date of injury Patient was able to plantar flex and dorsiflex the right foot with minimal discomfort Patient is able to flex and extend all digits of the right foot fully and without difficulty Results Reviewed Results Reviewed: X-rays obtained in the office today and independently reviewed by me, Aravind Sage PA-C, demonstrate minimally displaced fractures of the 4th and 5th metatarsal bases of the right foot. Assessment & Plan Assessment & Plan (1) Fracture of fourth metatarsal bone of right foot: Code(s): S92.341A - Displaced fracture of fourth metatarsal bone, right foot, initial encounter for closed fracture Category: Medical (2) Fracture of fifth metatarsal bone of right foot: Code(s): S92.351A - Displaced fracture of fifth metatarsal bone, right foot, initial encounter for closed fracture Category: Medical Plan 1. Right 4th metatarsal base fracture 2. Right 5th metatarsal base fracture, consistent with Hanks fracture Date of injury 02/29/2024 Patient is educated about this condition Patient is educated about the typical recovery course Patient is educated that she can weightbear as tolerated in the postop shoe provided in the office today Patient is advised that she should use the postop shoe while weight-bearing for the next 2-3 weeks, at which point she can trial wearing hard-soled and supportive foot wear Patient was also educated she should continue avoiding any significant impact activities to the right foot Patient was amenable to this plan Patient will follow-up in 3-4 weeks with repeat x-rays, sooner any acute concerns Orders: Orders XR foot RT min 3V Today S92.351A - Displaced fracture of fifth metatarsal bone, right foot, initial encounter for closed fracture Coding Level of Care Code Global (20185) Diagnoses Fracture of fourth metatarsal bone of right foot S92.341A Fracture of fifth metatarsal bone of right foot S92.351A
== END 2024-04-18 15:10 | disposition home or self-care (01) ==
PROVIDERS: PCP Nurse Practitioner Family
DX: S92.341A Displaced fracture of fourth metatarsal bone, right foot, initial encounter for closed fracture (principal); S92.351A Displaced fracture of fifth metatarsal bone, right foot, initial encounter for closed fracture
CPT/HCPCS: 99024

== ENCOUNTER 2024-05-23 09:59 | Outpatient (REF) | payer MEDICARE, OTHER, SELFPAY ==
--- NOTE | ~2024-05-23 | XR_ITS ---
CLINICAL HISTORY: S92.351A - Displaced fracture of fifth metatarsal bone, right foot, init... 3 view right foot Comparison: 04/18/2024 Findings: There has been interval partial healing across the nondisplaced fracture proximal metaphysis of the 4th metatarsal. There is no significant healing of the mildly displaced fracture proximal metaphysis of the 5th metatarsal. There is no significant change in alignment. There are no new fractures. Stable degenerative changes. Stable small calcaneal spur No soft tissue lesions IMPRESSION: Partial healing nondisplaced fracture proximal metaphysis of the 4th metatarsal No significant healing mildly displaced fracture proximal metaphysis of the 5th metatarsal Stable osteoarthrosis Stable small calcaneal spur This document has been electronically signed by: Fidel Wood MD on 05/24/2024 04:39:33
--- OUTSIDE RECORDS SUMMARY | 2024-05-23 11:20 | XMS_ITS ---
Author Organization [facility] Address [address] [place] [address] Care Team Providers Care Styrene Dehydration Reactor Operator Name Role Phone Jose Schultz Primary Care Provider Unav juanable Estrada, Carly Unavailable [phone] Vishnu Forbes Unavailable [phone] REASON FOR VISIT Transfer to Different Provider Encounters Encounter Location Date Provider Diagnosis [address] [address] 04/12/2024 Vishnu Forbes Plan Of Treatment Next Appt Details Provider Name:Sarah goodrich, 05/31/2024 02:00:00 PM, [address] [place] [address], [address], Progress Notes * Eve PAREDES ADOB:1934 (89 yo F)Acc No.[id number]:04/12/2024 Progress Note Patient:?Eve PAREDES Provider:?Vishnu Forbes DPM :1935???Age:89 Y???Sex:Female D ate:04/12/2024 [address] [facility], [place] Pcp:HI Campbell Subjective: * Chief Complaints: * ???1. Transfer to Different Provider. * Medical History:? Objective: * Vitals:? Assessment: Plan: * Treatment: * Images: * The named appointment provid er may or may not be the originator of this progress note, and it is not deemed complete until electronically signed by the appointment provider. Sign off status: Pending * Provider:?Vishnu Forbes DPM Date:? 024 Generated for Dandy mccarty/Patric/Macarena on:?05/23/2024 11:20 AM EST
--- OUTSIDE RECORDS SUMMARY | 2024-05-23 11:20 | XMS_ITS ---
Author Organization [facility] Address [address] [place] [address] Care Team Providers Care Armed Security Professional Name Role Phone Jose Schultz Primary Care Provider Unav ailable Carly Estrada Unavailable [phone] Encounters Encounter Location Date Provider Diagnosis [address] [address] 04/12/2024 Carly Estrada Plan Of Treatment Next Appt Details Provider Name:Sarahwesley goodrich, 05/31/2024 02:00:00 PM, [address] [place], [address], Progress Notes * Eve PAREDES ADOB:1934 (89 yo F)Acc No.[id number]:04/12/2024 Progress Note Patient:?Eve PAREDES Provider:?Carly Estrada DPM :1935???Age:89 Y???Sex:Female D ate:04/12/2024 Address:[address], [place] Pcp:HI Campbell Subjective: * Chief Complaints: * [...] DPM Date:?1 06/13/2023 Generated for Dandy mccarty/Patric/Macarena on:?05/23/2024 11:20 AM EST
--- OUTSIDE RECORDS SUMMARY | 2024-05-23 11:21 | XMS_ITS ---
Author Organization [facility] Zaria gurpreet [place] Address [address] [place] [address] Care Team Providers Care Broom Builder Name Role Phone Jose Schultz Primary Care Provider Unav ailable Carly Estrada Unavailable [phone] REASON FOR VISIT r/s Encounters Encounter Location Date Provider Diagnosis [facility] [address] [place] [address] 03/17/2024 Carly Estrada Plan Of Treatment Next Appt Details Provider Name:Sarah goodrich, 05/31/2024 02:00:00 PM, [address] [place], [address], Progress Notes * Eve PAREDES ADOB:1934 (89 yo F)Acc No.[id number]:03/17/2024 Patient:?Eve Paredes :1935???Age:89 Y???Sex:Female Address:[address], [place], [address] * true * Date:? Generated for Zhaoi lul/Patric/eTransmitting on:?05/23/2024 11:20 AM EST
--- OUTSIDE RECORDS SUMMARY | 2024-05-23 11:21 | XMS_ITS | Patient Health Record ---
Author Organization [facility] Address [address] [place] [address] Care Team Providers Care Lens Grinder Name Role Phone Jose Schultz Primary Care Provider Carly Christensen Unavailable [phone] Vishnu Forbes Unavailable [phone] Allergies Allergen (clinical drug ingredient) Drug/Non Drug [...] Vaccine Route Administration Date Status Comme nts Influenza Unknown 03/10/2016 Administered Influenza Unknown 04/07/2022 Administered COVID-19 Pfizer BioNTech Vaccine Unknown 04/07/2022 Administered 06/16/20,07/04/20 01/14/21,09/08/21 Social History Tobacco Use: Social History Observation [...] disorder associated with type II diabetes mellitus (451171595) 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 confirmed Problem Localized, primary osteoarthritis of the ankle and/or foot (128906254) Primary osteoarthritis, left ankle and foot (M19.072) Active confirmed Problem Acquired hammer toe of right foot (1665765171238349) Other hammer toe(s) (acquired), right foot (M20.41) Active confirmed Problem Acquired hammer toe of left foot (8026260718443679) Other hammer toe(s) (acquired), left foot (M20.42) Active confirmed Vital Signs Blood pressure diastolic 80 mm Hg 11/10/2023 Height 5 ft 4 in in 02/23/2024 Blood pressure systolic 128 mm Hg 11/10/2023 Weight 191 lbs 02/23/2024 BMI 32.78 kg/m2 02/23/2024 Procedures Procedure Date Ordered Date Performed Result Body Sit e 42823-IUAJ SKIN LESIONS, 2 TO 4 02/23/2024 N/A 23458-RTRYAIR NAIL, 6 OR MORE 02/23/2024 N/A Encounters Encounter Location Date Provider Diagnosis [address] [address] 08/09/2023 Vishnu Forbes Pain in right foot M79.671 ; Ingrowing nail L60.0 ; Pain in left foot M79.672 ; Tinea unguium B35.1 ; Type 2 diabetes mellitus with other diabetic neurological complication E11.49 ; Pain in right toe(s) M79.674 ; Metatarsalgia, left foot M77.42 ; Pain in left toe(s) M79.675 and Primary osteoarthritis, left ankle and foot M19.[address] [address] 11/10/2023 Vishnu Forbes Pain in right foot M79.671 ; Ingrowing nail L60.0 ; Pain in left foot M79.672 ; Tinea unguium B35.1 ; Type 2 diabetes mellitus with other diabetic neurological complication E11.49 ; Pain in right toe(s) M79.674 ; Metatarsalgia, left foot M77.42 ; Pain in left toe(s) M79.675 and Primary osteoarthritis, left ankle and foot M19.[address] [address] 02/23/2024 Carly Estrada Tinea unguium B35.1 and Type 2 diabetes mellitus with other diabetic neurological complication E11.[address] [address] 02/08/2024 Carly Estrada [address] [address] 03/17/2024 Carly Estrada Assessments Encounter Date Diagnosis [...] 11/09/2017 X ray : Foot, left 3V 09/13/2017 X ray : Foot, left 3V 11/18/2017 X ray : Foot, left 3V 12/01/2017 X ray : Foot, left 3V 12/13/2017 X ray : Foot, left 3V 01/17/2018 X ray : Foot, left 3V 02/28/2018 21518-XGXDKMB NAIL, 6 OR MORE 02/23/2024 40077-UDQRIYP NAIL, 6 OR MORE 02/28/2018 34074-NSUHJQB NAIL, 6 OR MORE 06/15/2016 81738-YLGHIHP NAIL, 6 OR MORE 02/10/2016 53522-SSSMITF NAIL, 6 OR MORE 07/11/2015 13539-WRFBHCS NAIL, 6 OR MORE 04/11/2015 90380-MKDEMCV NAIL, 6 OR MORE 11/15/2014 21449-DDRBQNS NAIL, 6 OR MORE 11/18/2017 95248-ESYCQPP NAIL, 6 OR MORE 09/13/2017 89673-YXTFHRA NAIL, 6 OR MORE 06/14/2017 19773-PJXXCKR NAIL, 6 OR MORE 07/31/2013 22700-CKLAXBJ NAIL, 6 OR MORE 10/21/2015 32058-ZQXQQMA NAIL, 6 OR MORE 10/12/2016 42027-ALLMBRR NAIL, 6 OR MORE 02/11/2017 70993-CVJDXCR NAIL, 6 OR MORE 02/19/2011 17936-EVZLMNU NAIL, 6 OR MORE 11/09/2011 30424-XTVLTME NAIL, 6 OR MORE 07/18/2012 35832-HTSEWDJ NAIL, 6 OR MORE 08/20/2014 60460-FJORPIR NAIL, 6 OR MORE 06/07/2014 83916-ATOMXKZ NAIL, 6 OR MORE 03/29/2014 29946-PYDIQJI NAIL, 6 OR MORE 01/10/2014 70854-DIMSFYE NAIL, 6 OR MORE 10/23/2013 36095-VNZYUOD NAIL, 6 OR MORE 04/03/2013 84396-OHEYKKL NAIL, 6 OR MORE 01/02/2013 76989-WZMBYMR NAIL, 6 OR MORE 04/18/2012 97440-TSUJLCC NAIL, 6 OR MORE 01/18/2012 70296-TVHXDBE NAIL, 6 OR MORE 06/10/2011 91552-Lgyv Destruction, -14 06/10/2011 41888-Rcec Destruction, -14 01/18/2012 96307-Ivcf Destruction, -14 11/09/2011 85619-Ryym Destruction, -14 02/19/2011 35195-Sykr Destruction, -14 08/31/2011 44025-Uxsilyrz Plate 08/31/2011 97053-Xmpitozs Plate 07/18/2012 11202-Lddglwvx Plate 05/24/2013 27179-Uggmlfuq Plate 11/09/2011 47368-Ptqvbpoe Plate 08/20/2014 57315-Uxrgvqly Plate 02/11/2017 56923-Mgettjvn Plate 07/31/2013 60103-Vyttcppw Plate 06/14/2017 47612-Gylcjtax Plate 11/18/2017 40861-Xcehpehe Plate 11/15/2014 02369-Kpmjsrfb Plate 01/18/2012 31881-Qlasfmqr Plate 06/10/2011 18830-Upzdvvbk Plate 04/18/2012 13213-Jxpkxvgx Plate 01/02/2013 10587-Btbtcagq Plate 04/03/2013 19805-Mdqzeatd Plate 10/23/2013 87312-Lontfctp Plate 01/10/2014 78527-Yjnqhlcn Plate 03/29/2014 02689-Barnysxs Plate 03/25/2015 56096-Pdapnsyq Plate 06/07/2014 60179-Bjzjdqhh Plate Each Additional 68375-Qpzrojfy Plate Each Additional 04420-Prezjzmi Plate Each Additional 11296-Ojolxooy Plate Each Additional 01/2015 88091-Ytrdmucs Plate Each Additional 49583-Fkfendlz Plate Each Additional 62921- Debride <25 sq cm 04/11/2015 89407-RHYL SKIN LESIONS, OVER 4 03/29/20 14 84965-KXAK SKIN LESIONS, OVER 4 06/07/19 15 63336-JHNK SKIN LESIONS, OVER 4 01/11/20 14 08794-QZPV SKIN LESIONS, OVER 4 10/24/19 14 79885-OYRD SKIN LESIONS, OVER 4 04/03/20 13 37664-XLDT SKIN LESIONS, OVER 4 01/03/20 13 54804-VRGV SKIN LESIONS, OVER 4 04/18/20 12 61392-RGAW SKIN LESIONS, OVER 4 07/19/19 13 08353-QNPV SKIN LESIONS, OVER 4 08/21/19 15 03726-XJJZ SKIN LESIONS, OVER 4 10/13/19 17 87504-SSWI SKIN LESIONS, OVER 4 09/14/19 18 46277-AJHO SKIN LESIONS, OVER 4 08/01/19 14 34654-MOJO SKIN LESIONS, OVER 4 02/12/20 17 92194-VTEE SKIN LESIONS, OVER 4 11/16/19 15 08802-FVOW SKIN LESIONS, OVER 4 06/15/19 17 37834-OIYJ SKIN LESIONS, OVER 4 06/05/19 21 63446-ICXK SKIN LESIONS, OVER 4 10/03/19 21 94095-GEOH SKIN LESIONS, 2 TO 4 01/07/20 21 58806-OHWC SKIN LESIONS, 2 TO 4 04/14/20 21 11993-EHSM SKIN LESIONS, 2 TO 4 02/23/20 24 06316-GEHI SKIN LESIONS, 2 TO 4 09/02/19 19 83038-OFDC SKIN LESIONS, 2 TO 4 12/30/19 19 07383-IBAX SKIN LESIONS, 2 TO 4 04/26/20 19 06154-KAEY SKIN LESIONS, 2 TO 4 07/31/19 20 11403-QJWQ SKIN LESIONS, 2 TO 4 12/04/19 20 15250-ZLIR SKIN LESIONS, 2 TO 4 02/05/20 20 30634-YSCZ SKIN LESIONS, 2 TO 4 11/19/19 18 63809-SWFJ SKIN LESIONS, 2 TO 4 02/10/20 16 55554-WGJR SKIN LESIONS, 2 TO 4 07/29/19 22 54500-ULSP SKIN LESIONS, 2 TO 4 02/29/20 18 12385-MIFS SKIN LESIONS, 2 TO 4 04/11/20 15 37972-NUJC SKIN LESIONS, 2 TO 4 07/11/19 16 72603-HIPI SKIN LESIONS, 2 TO 4 06/14/19 18 90312-VHFA SKIN LESIONS, 2 TO 4 10/21/19 16 10778- Unna Boot 11/09/2017 39015- Nail Unit Biopsy 09/13/2017 92463- Nail Unit Biopsy 01/17/2018 Next Appt Details Provider Name:Sarah goodrich, 05/31/2024 02:00:00 PM, [address] [place], [address], Insurance Providers Payer Name Payer Address Payer Phone Subscriber Number Group Number Insured Name Patient Relationship to Insured Coverage Start Date Coverage End Date Medicare [facility] [address] [place] [phone] [id number] Eve Musa Self - patient is the insured 5 [facility] [address] [place] [address] [id number] Eve Musa Self - patient is the insured Medical (General) History Medical History History ICD Code measles hypertension diverticulitis chicken pox Cholesterol Arthritis Anxiety disorder type II diabetes Cataracts Surgical History Surgery Date(Month/Year) colon/intestinal surgery 2005 hysterectomy 1965 tubal ligation 1955 Ostectomy L3rdMT, HT L2nd,3rd 10/28/17 cataract surgery Hospitalization History Reason Date(Month/Year) [facility] - broke hip/pt fell 04/28/2018 [facility]
== END 2024-05-23 10:00 | disposition home or self-care (01) ==
LOC: HO.HOSX 09:59
DX: S92.351D Displaced fracture of fifth metatarsal bone, right foot, subsequent encounter for fracture with routine healing (principal); S92.341D Displaced fracture of fourth metatarsal bone, right foot, subsequent encounter for fracture with routine healing
CPT/HCPCS: 73630; 99212

== ENCOUNTER 2024-05-23 10:44 | Outpatient (AMB) | payer MEDICARE, OTHER, SELFPAY ==
--- NOTE | 2024-05-23 10:51 | A.OFFVIS_ITS ---
Vital Signs 05/23/24 11:00 Height 5 ft 4 in Weight 195 lb BMI 33.5 Intake Visit Reasons: OV-right displaced metatarsal fx, DOI 02/29/24 Intake Note: Eve is an 89 year old female who presents to the office today for her right 4th metatarsal and 5th metatarsal base fracture, DOI 02/29/24. Patient reports she is doing well, denies any pain, numbness or tingling. She continues wearing post op shoe, awaiting confirmation from provider to transition into a regular street shoe. Allergies atorvastatin [From LIPITOR] Allergy (Severe, Unverified 05/23/24 10:59) ANGIOEDEMA doxycycline [DOXYCYCLINE] Allergy (Severe, Unverified 05/23/24 10:59) ANAPHYLAXIS, ANGIOEDEMA HPI HPI OV-right displaced metatarsal fx, DOI 02/29/24: Details: Eve is an 89 year old female who presents to the office today for her right 4th metatarsal and 5th metatarsal base fracture, DOI 02/29/24. Patient reports she is doing well, denies any pain, numbness or tingling. She continues wearing post op shoe, awaiting confirmation from provider to transition into a regular street shoe. [facility] Surgical History History of colon resection History of rectal surgery History of hemiarthroplasty of right hip History of hemiarthroplasty of left hip Hx of appendectomy Hx of hysterectomy Social History Housing: Apartment Patient Tobacco Use Status: Former Tobacco user e-Cigarette/Vaping Use: Never Used Current occupational status: retired Cognitive needs: No Hearing needs: No Vision needs: Yes Review of Systems Const All systems reviewed & are unremarkable except as noted in HPI and below Physical Exam Vital Signs: BMI result Body Mass Index 33.5 Extrem Other: On inspection, there is no visible deformity of the patient's right foot No edema No ecchymosis noted No erythema or evidence of infection noted No tenderness to palpation about the 4th and 5th metatarsal bases No pain with ambulation Patient was able to plantar flex and dorsiflex the right foot without difficulty Patient is able to flex and extend all digits of the right foot fully and without difficulty Results Reviewed Results Reviewed: X-rays obtained in the office today and independently reviewed by me, Aravind Sage PA-C, demonstrate minimally displaced fractures of the 4th and 5th metatarsal bases of the right foot with evidence of interval bony healing. Assessment & Plan Assessment & Plan (1) Fracture of fourth metatarsal bone of right foot: Code(s): S92.341A - Displaced fracture of fourth metatarsal bone, right foot, initial encounter for closed fracture Category: Medical (2) Fracture of fifth metatarsal bone of right foot: Code(s): S92.351A - Displaced fracture of fifth metatarsal bone, right foot, initial encounter for closed fracture Category: Medical Plan 1. Right 4th metatarsal base fracture 2. Right 5th metatarsal base fracture, consistent with Hanks fracture Date of injury 02/29/2024 Patient is educated about this condition Patient is educated about the typical recovery course Patient is educated that she can weightbear as tolerated in supportive footwear Patient is also educated that her fracture is healing very well, and she will not require any acute follow-up with us Patient was amenable to this plan Patient will follow-up as needed with any acute concerns Orders: Orders XR foot RT min 3V Today S92.351A - Displaced fracture of fifth metatarsal bone, right foot, initial encounter for closed fracture Coding Level of Care Code Global (60117) Diagnoses Fracture of fourth metatarsal bone of right foot S92.341A Fracture of fifth metatarsal bone of right foot S92.351A
[2024-05-23 11:00] VITALS: BMI 33.5
== END 2024-05-23 11:16 | disposition home or self-care (01) ==
PROVIDERS: PCP Nurse Practitioner Family
DX: S92.341A Displaced fracture of fourth metatarsal bone, right foot, initial encounter for closed fracture (principal); S92.351A Displaced fracture of fifth metatarsal bone, right foot, initial encounter for closed fracture
CPT/HCPCS: 99024

== ENCOUNTER 2024-06-01 10:00 | Outpatient (REF) | payer MEDICARE, OTHER, SELFPAY ==
[2024-06-01 13:22] LABS: MANUAL DIFF FLAG NO
[2024-06-01 13:42] LABS: Basophils Percent Auto 0.2 % (0-2); Eosinophils Absolute Auto 0.1 X10*3/uL (0.0-0.4); Eosinophils Percent Auto 1.2 % (0-4); Hematocrit 38.7 % (37.0-47.0); Hemoglobin 12.4 g/dl (12.0-16.0); Imm Gran Abs Auto 0.02 X10*3/uL (0.00-0.03); Imm Gran Pct Auto 0.3 % (0.0-0.4); Lymphocytes Absolute Auto 1.4 X10*3/uL (1.2-4.9); Lymphocytes Percent Auto 23.5 % (20-40); Mean Corpuscular Hemoglobin 28.4 pg (27.0-33.0); Mean Corpuscular Volume 88.8 fL (80.0-98.0); Mean Platelet Volume 10.3 fL (9.4-12.3); Monocytes Absolute Auto 0.4 X10*3/uL (0.1-1.2); Monocytes Percent Auto 7.2 % (2-11); Neutrophils Percent Auto 67.6 % (45-73); Platelet Count 172 X10*3/uL (160-400); Red Blood Count 4.36 X10*6/uL (4.20-5.50); Red Cell Distribution Width 15.5 % (11.0-16.0); White Blood Count 5.9 X10*3/uL (4.8-10.8)
[2024-06-01 13:52] LABS: Appearance Urine Clear; Color Urine Yellow; Glucose Urine UA Negative (Negative); Leukocyte Esterase Urine Trace (Negative); Nitrite Urine Negative (Negative); PH 6.5 (5.0-9.0); Specific Gravity - Urine 1.015 (1.005-1.025); UMIC TRIGGER UACC YES; Urine Blood Negative (Negative); Urine Ketones Negative (Negative); Urine Protein Negative (Neg-Trace)
[2024-06-01 14:04] LABS: Bacteria Urine None Seen (None Seen); Hyaline Casts Urine 0-2 /LPF (0-2); RBC Urine 0-2 /HPF (0-2); Squamous Epithelial Cell Urine 0-2 /HPF (0-2); WBC Urine 0-5 /HPF (0-5)
[2024-06-01 14:20] LABS: Alanine Aminotransferase 24 U/L (0-31); Albumin Level 4.1 g/dL (3.5-5.0); Alkaline Phosphatase 70 U/L (39-117); Anion Gap 12 (12-20); Aspartate Amino Transferase 31 U/L (5-31); Bilirubin Total 0.5 mg/dL (0.0-1.0); Blood Urea Nitrogen 22 mg/dL (9-16); Calcium 9.7 mg/dL (8.4-10.2); Carbon Dioxide 27 mmol/L (22-29); Chloride 107 mmol/L (96-108); Cholesterol 102 mg/dL (<200); Estimated Glomerular Filt Rate 54; Glucose Fasting 150 mg/dL (60-99); HDL Cholesterol 37 mg/dL (>40); LDL Cholesterol Calculated 35 mg/dL (<100); Potassium 3.9 mmol/L (3.3-5.1); Sodium 142 mmol/L (135-145); TSH reflex Free T4 1.54 uIU/mL (0.32-4.0); Total Protein 6.8 g/dL (6.5-8.0); Triglycerides 150 mg/dL (<150); Vitamin D 25-OH Total 80.1 ng/mL (>30)
== END 2024-06-01 10:01 | disposition home or self-care (01) ==
LOC: HO.HMGCLDS 10:00
PROVIDERS: PCP Nurse Practitioner Family; Visit Provider Nurse Practitioner Family
DX: Z00.00 Encounter for general adult medical examination without abnormal findings (principal); Z13.0 Encounter for screening for diseases of the blood and blood-forming organs and certain disorders involving the immune mechanism; Z13.29 Encounter for screening for other suspected endocrine disorder; Z13.220 Encounter for screening for lipoid disorders
CPT/HCPCS: 36415; 80053; 80061; 81001; 82306; 84443; 85025

== ENCOUNTER 2024-06-05 14:09 | Outpatient (AMB) | payer MEDICARE, OTHER, SELFPAY ==
[2024-06-05 14:15] VITALS: BP 134/80; PULSE 75; O2SAT 94; BMI 33.7
--- NOTE | 2024-06-05 14:15 | MHC.PC.OV ---
Vital Signs 06/05/24 14:15 Height 5 ft 4 in Weight 196 lb 8 oz BMI 33.7 BP 134/80 Blood Pressure Location Rt brachial Position Sitting Pulse 75 Pulse Source Pulse Oximeter Pulse Oximetry (%) 94 Oxygen Delivery Method Room Air Intake Visit Reasons: 6 month follow up Intake Note: Pt is here today for 6 month follow up Allergies atorvastatin [From LIPITOR] Allergy (Severe, Verified 06/05/24 15:04) ANGIOEDEMA doxycycline [DOXYCYCLINE] Allergy (Severe, Verified 06/05/24 15:04) ANAPHYLAXIS, ANGIOEDEMA Medication List - Last Reconciled 06/05/24 by AIDEN Sandra amlodipine 5 mg PO DAILY aspirin 81 mg PO DAILY dulaglutide (Trulicity) mg subcut escitalopram oxalate 5 mg PO DAILY fluconazole mg PO hydrochlorothiazide 12.5 mg PO DAILY levothyroxine 75 mcg PO DAILY lorazepam 0.5 mg PO DAILY PRN metformin 750 mg PO BID metoprolol tartrate 50 mg PO BID mirtazapine 7.5 mg PO BEDTIME nystatin 1 appl topical DAILY 14 days rosuvastatin 20 mg PO BEDTIME Tobacco use date assessed: 06/05/24 Fall risk assessment: 1 Fall in past year Last assessed Fall Risk: 06/05/24 Dental Screening Dental Screen Date: 06/05/24 Did you have a dental visit in the last 12 months?: Yes Did you have a dental problem in the last 6 months where you did not have access to dental care?: No Was dental information given to patient?: Patient has dentist HPI 6 month follow up HPI Details pt is here for a generalized follow up. Denies any CP, SOB, N/V, fevers, chills, LUCERO, blurred vision. She is a diabetic, follows up with endo. She informed me today she will be moving down to [place] to be with her son. Her labs were quite impressive recently. I encouraged her to stay active, [place], and to continue to keep her mind active as well. [facility] Surgical History History of colon resection History of rectal surgery History of hemiarthroplasty of right hip History of hemiarthroplasty of left hip Hx of appendectomy Hx of hysterectomy Social History Housing: Apartment Patient Tobacco Use Status: Former Tobacco user e-Cigarette/Vaping Use: Never Used service: No Current occupational status: retired Cognitive needs: No Hearing needs: No Vision needs: Yes Questionnaire PHQ-9 Over the last 2 weeks, how often have you been bothered by any of the following problems? 1. Little interest or pleasure in doing things: not at all 2. Feeling down, depressed, or hopeless: not at all 3. Trouble falling or staying asleep, or sleeping too much: not at all 4. Feeling tired or having little energy: not at all 5. Poor appetite or overeating: not at all 6. Feeling bad about yourself - or that you are a failure or have let yourself or your family down: not at all 7. Trouble concentrating on things, such as reading the newspaper or watching television: not at all 8. Moving or speaking so slowly that other people could have noticed. Or the opposite - being so fidgety or restless that you have been moving around a lot more than usual: not at all 9. Thoughts that you would be better off or of hurting yourself in some way: not at all Total score: 0 Depression Screening Interpretation: Negative Depression Screening Done: Yes 65466 - PHQ-9 Billing: Yes Source: Developed by Drs. Fidel Rashid, Ale Clinton, Hank Cox and colleagues, with an educational margo from [employer]. Thrive Questionnaire Date Thrive assessed: 06/05/24 I am a: Patient What is your living situation today?: I have a steady place to live Within the past 12 months, did the food you bought not last and you didn't have the money to get more?: I choose not to answer this question Within the past 12 months, did you worry whether your food would run out before you got money to buy more?: I choose not to answer this question Do you have trouble paying for medicines?: No Do you have trouble getting transportation to medical appointments?: No Do you have trouble paying your heating and electricity bill?: No Do you have trouble taking care of your child, family member or friend?: No Do you have trouble with day-to-day activities such as bathing, preparing meals, shopping, managing finances, etc.?: No Are you currently unemployed and looking for a job?: No Are you interested in more education?: No THRIVE Score: 0 AUDIT C Alcohol Use Questionnaire (AUDIT-C) 1. How often do you have a drink containing alcohol?: Never 3. How often do you have six or more drinks on one occasion?: Never Total Score: 0 Score Reviewed/Action Taken: Yes CARLOS-7 AMB Questionnaire CARLOS-7 Date CARLOS - 7 assessed: 06/05/24 Source: Developed by Drs. Fidel Rashid, Ale Clinton, Hank Cox and colleagues, with an educational margo from [employer]. Physical exam (Primary Care) Vital Signs: Last Vital Signs Pulse 75 06/05/24 14:15 BP 134/80 06/05/24 14:15 Pulse Ox 94 06/05/24 14:15 Oxygen Delivery Method Room Air 06/05/24 14:15 BMI result Body Mass Index 33.7 Tobacco/Smoking Status: Tobacco use Status Tobacco use date assessed 06/05/24 06/05/24 14:24 Patient Tobacco Use Status Former Tobacco user 06/05/24 14:17 e-Cigarette/Vaping Use Never Used 06/05/24 14:17 PHQ-9: PHQ-9 Score PHQ-9: Total score 0 06/05/24 14:24 Depression Screening Interpretation: Negative Thrive Assessment: Date of Thrive Assessment Date Thrive assessed 06/05/24 06/05/24 14:17 Const General: cooperative, healthy appearing, comfortable, no acute distress and well developed Resp Effort & Inspection: normal respiratory effort Auscultation: clear to auscultation bilaterally Cardio Rate: regular rate Rhythm: regular rhythm Heart sounds: S1 normal heart sound present, S2 normal heart sound present and Murmur heart sound present systolic Extrem Other: trace edema to BLE Psych Appearance: grossly normal and well kempt Mental Status: mental status grossly normal Speech and movement: Normal speech and movement present Thought process: Normal thought process present Thought content: Normal thought content present Insight: Good insight present (Psych) Judgement: Good judgement present (Psych) Coding Level of Care Code Est Pt Level 3 (27908) Diagnoses Postmenopausal Z78.0 Diabetes E11.9 Additional Codes PHQ-9 - 30949 - PHQ-9 Billing: Yes ([id number]) Assessment & Plan Assessment & Plan (1) Postmenopausal: Code(s): Z78.0 - Asymptomatic menopausal state Category: Medical (2) Diabetes: Code(s): E11.9 - Type 2 diabetes mellitus without complications Category: Medical Plan: cont to follow up with endo Plan bone density ordered Orders: Orders XR DEXA axial skeleton Today Z78.0 - Asymptomatic menopausal state Patient Instructions: wishing her all the luck [place]. Encouraged staying physically and mentally active
--- OUTSIDE RECORDS SUMMARY | 2024-06-05 18:38 | XMS_ITS ---
Author Organization [facility] Address [address] [facility] [place] [address] Care Team Providers Care Nursing Secretary Name Role Phone Jose Schultz Primary Care Provider Claude CastellonCarly beaver Unavailable [phone] VanitaSarah goodrich Unavailable [phone] Allergies Allergen (clinical drug ingredient) Drug/Non Drug Allergy documented on EMR Reaction Allergy Type Onset Date Status atorvastatin Lipitor anaphylaxis Drug Allergy Ac tive doxycycline Doxycycline anaphylaxis Drug Allergy A ctive REASON FOR VISIT At Risk Footcare Medications Medication SIG (Take, Route, Frequency, Duration) Notes Start Date End Date Status Lasix Active Water Pills Active Trulicity Active hydroCHLOROthiazide 12.5 MG TAKE 1 CAPSU LE BY MOUTH EVERY DAY FOR 90 DAYS Oral for 90 Active amLODIPine Besylate 5 MG TAKE 1 TABLET B Y MOUTH EVERY DAY Oral for 90 Active Zoloft Not-Taking dexAMETHasone Sodium Phosphate Not-Taking ASA Not-Taking BuSpar Not-Taking Crestor Not-Taking Gabapentin 400 MG 1 capsule Orally Once a day hs for 10 days 10/21/2017 Not-Taking CeleXA Not-Taking Keflex 500 MG 1 capsule Orally every 8 hrs for 10 days Not-Taking Keflex 500 MG 1 capsule Orally every 12 hrs for 10 day(s) 10/21/2017 Not-Taking Sertraline HCl 100 MG TAKE 1 TABLET BY MOUTH EVERY DAY Oral for 90 Not-Taking Metoprolol Tartrate 50 MG TAKE 1 TABLET BY MOUTH TWICE A DAY Oral for 90 Active Levothyroxine Sodium 75 MCG TAKE 1 TABLE T BY MOUTH EVERY MORNING ON AN EMPTY STOMACH Orally Once a day Active Naproxen 500 MG 1 tablet with food or milk as needed Orally every 12 hrs for 30 days PRN 10/21/2017 Active metFORMIN HCl 500 MG as directed Orally Twice a day Active Paxil Not-Taking Social History Tobacco Use: Social History Observation Description Date Details (start date - stop date) Never Smoker NA - NA Alcohol Screen Question Answer Notes Did you have a drink contain ing alcohol in the past year? Yes How often did you have a dri nk containing alcohol in the past year? 2 to 4 times a month (2 points) Points 2 Interpretation Negative Tobacco use other than smoking: Question Answer Notes Are you an other tobacco user? No Tobacco Control (Standard) Question Answer Notes Tobacco use: Nonsmoker Problems Problem Type SNOMED Code ICD Code Onset Dates Problem Status W/U Status Risk Notes Problem Polyneuropathy due to type 2 diabetes mellitus (305737668) Type 2 diabetes mellitus with diabetic polyneuropathy (E11.42) Active confirmed Vital Signs Blood pressure systolic 128 mm Hg 05/31/19 25 Blood pressure diastolic 80 mm Hg 025 Height 5 ft 4 in in 05/31/2024 Weight 193 lbs 05/31/2024 BMI 33.12 kg/m2 05/31/2024 Encounters Encounter Location Date Provider Diagnosis [facility] [address] [address] 05/31/2024 Sarah Hicks Type 2 diabetes mellitus with diabetic polyneuropathy E11.42 and Tinea unguium B35.1 Assessments Encounter Date Diagnosis (ICD Code) Assessment Notes Treatment Notes Treatment Clinical Notes Section Notes 05/31/2024 Type 2 diabetes mellitus with diabetic polyneuropathy (ICD-10 - E11.42) 05/31/2024 Tinea unguium (ICD-10 - B35.1) Plan Of Treatment Next Appt Details Follow Up: 3 Months, Reason: Provider Name:Sarah goodrich, 08/30/2024 02:45:00 PM, [address] [place] [address], [phone], Procedure Notes * Category Sub-Category Detail Notes Debride Nail 6-10 Nail debridement Due to the cl inical pathology outlined in the exam findings, performance of this nail treatment is medically necessary as its management by an unskilled/untrained nonprofessional would put this patients foot and overall health at risk. Therefore, debridement to affected nail(s), as described in exam ( TA, T1, T2, T3, T4, T5, T6, T7, T8, T9, ), was performed exclusively by the physician of record to reduce/remove overall nail length, girth, thickness, subungual debris, and necrotic tissue, by manual and/or electrical means through the use of a nail nipper and/or dremel-type computer numerical control grinder, to a more viable healthy nail plate or bed tissue 6-10 nails in total. Silver nitrate was used for any petechial bleeding as necessary. Definitive antifungal treatment options, both pharmaceutical and surgical, have been reviewed and discussed with the patient. The patient solely prefers the use of intermittent/as needed professional debridement services for their nail condition and understands the need for additional periodic treatments to maintain effectiveness in symptomatic relief - 63053 Keratoma Treatment Parring or Cutting o f Benign Hyperkeratotic Lesion(s) (-57) More than 4 Lesions - Due to the at risk nature of the patients medical condition as documented in the exam findings, performance of this keratoderma treatment is medically necessary as its management by an unskilled/untrained nonprofessional would put this patients foot and overall health at risk. Therefore, the benign hyperkeratotic lesions, ( 5 ) in total, locations as stated and described in the exam ( TA, T5, T6, SUB MTH (s), 3, 4, Left), were pared, and/or cut utilizing a sterile 15 blade, tissue nippers, and/or power dremel instrumentation by the physician of record - 07318 Progress Notes * Shanell PAREDESne ADOB:1934 (89 yo F)Acc No.[id number]:05/31/2024 Progress Note Patient:?Eve PAREDES Provider:?Sarah Hicks DPM :1935???Age:89 Y???Sex:Female D ate:05/31/2024 Address:[address] [place] [address], [address], [place] [facility] Pcp:HI Campbell Subjective: * Chief Complaints: * ???At Risk Footcare * HPI: ???At Risk footcare:?Pt States Last PCP Visit:?Date?04/27/2024 * ROS:?General/Constitutional:?Nausea?denies.?Vomiting?denies.?Hunger Thirst?denies.?Loss appetite?denies.?Chills?denies.?Fatigue?denies.?Fever?denies.?Night Sweats?denies.?Unexplained weight loss?denies.?Unexplained weight gain?denies.?HEENTM:?Dentures?denies.?Dizziness?denies.?Glasses/contacts?denies.?Retinopathy?den ies.?Blurred/double vision?denies.?TMJ?denies.?Discharge/drainage?denies.?Implants?denies.?Sore throat?denies.?Dental implants?denies.?Hard of hearing ?denies.?Difficulty chewing/swallowing/speaking?denies.?Nose bleeds?denies.?Sore mouth?denies.?Respiratory:?On O xygen?denies.?Pneumonia/pleurisy?denies.?Bronchitis?denies.?Emphysema?denies.?Co ughing?denies.?Cough blood?denies.?Shortness of breath?denies.?Wheezing?denies.?Cardiovascular:?Pacemaker?denies.?MVP?denies.?WPW?denies.?CHF?denies.?Heart attack?denies.?Septal defect?denies.?Rapid beat?denies.?Chest pain ?denies.?Atrial Fib.?denies.?Murmur/Palpitations?denies.?Gastrointestinal:?Hemorrhoids?denies.?Stomach/Abdominal pain?denies.?Dark blood stool?denies.?Irritable bowel ?denies.?Constipation?denies.?Diarrhea?denies.?Hematology:?Swelling?admits.?Clots?denies.?Varicose Veins?denies.?Bruising?denies.?Bleeding problem?denies.?Genitourinary:?Blood urine?denies.?Frequent/Painfu/urination/bladder control?denies.?Kidney stones?denies.?Infection (UTI)?denies.?Nephropathy?admits.?sex trans dis (STD)?denies.?Prostate?denies.?Musculoskeletal:?Hammertoes?denies.?Bunions?denies.?Back Pain?admits.?Muscle Cramps/ Resting?denies.?Muscle cramps / walking?denies.?Generalized aches and pains?admits.?Weakness?denies.?Integ.:?Viera?denies.?Scars?denies.?Corns/calluses?denies.?Ingrown nails?admits.?Painful nails?admits.?Open Sores?denies.?Rashes?denies.?Neurologic:?Difficulty sleeping?denies.?Brain disorder?denies.?Numbness?denies.?Balance t rouble?denies.?Confusion?denies.?Fainting/blackouts?denies.?Tingling?denies.?Albert mors?denies.? * Medical History:? * Surgical History:?colon/inte stinal surgery 2006hysterectomy 1965tubal ligation 1956Ostectomy L3rdMT, HT L2nd,3rd 10/28/17cataract surgery * Hospitalization/Major Diagno stic Procedure:?[facility] pt fell from a ladder and kristin tailbone 2017C - broke hip/pt fell 04/28/2018 * Family History:?Mother: dece ased.?Father: , diagnosed with Diabetic - NIDDM.?Son(s): alive, diagnosed with Other malignant neoplasm of unspecified site.?Siblings: diabetes, heart condition.?Spouse: .?1 son(s) . .? * Social History:?Tobacco Use:?Tobacco use other than smoking?Are you an other tobacco user??No ?Tobacco Control (Standard)?Tobacco use:?Nonsmoker ???Drugs/Alcohol:?Drugs?Have you used drugs other than those for medical reasons in the past 12 months??No ?Alcohol Screen?Did you have a drink containing alcohol in the past year??Yes ?How often did you have a drink containing alcohol in the past year??2 to 4 times a month (2 points) ?Points?2 ?Interpretation?Negative ???Miscellaneous:?Caffeine: yes, frequency:, 1-cups per day. ?Children: yes, 1. ?Exercise: no. ?Marital status: . ?Occupation: Retired- Caregiver. * Medications:?TakingLasix Kirby licity Water Pills amLODIPine Besylate 5 MG Tablet TAKE 1 TABLET BY MOUTH EVERY DAY Oral hydroCHLOROthiazide 12.5 MG Capsule TAKE 1 CAPSULE BY MOUTH EVERY DAY FOR 90 DAYS Oral Levothyroxine Sodium 75 MCG Tablet TAKE 1 TABLET BY MOUTH EVERY MORNING ON AN EMPTY STOMACH Orally Once a day Metoprolol Tartrate 50 MG Tablet TAKE 1 TABLET BY MOUTH TWICE A DAY Oral metFORMIN HCl 500 MG Tablet as directed Orally Twice a day Naproxen 500 MG Tablet 1 tablet with food or milk as needed Orally every 12 hrs , Notes to Pharmacist: PRNTaking Lasix Taking Trulicity Taking Water Pills Taking amLODIPine Besylate 5 MG Tablet TAKE 1 TABLET BY MOUTH EVERY DAY Oral Taking hydroCHLOROthiazide 12.5 MG Capsule TAKE 1 CAPSULE BY MOUTH EVERY DAY FOR 90 DAYS Oral Taking Levothyroxine Sodium 75 MCG Tablet TAKE 1 TABLET BY MOUTH EVERY MORNING ON AN EMPTY STOMACH Orally Once a day Taking Metoprolol Tartrate 50 MG Tablet TAKE 1 TABLET BY MOUTH TWICE A DAY Oral Taking metFORMIN HCl 500 MG Tablet as directed Orally Twice a day Taking Naproxen 500 MG Tablet 1 tablet with food or milk as needed Orally every 12 hrs , Notes to Pharmacist: PRNNot-Taking/PRNPaxil CeleXA Gabapentin 400 MG Capsule 1 capsule Orally Once a day [facility] 500 MG Capsule 1 capsule Orally every 12 hrs Keflex 500 MG Capsule 1 capsule Orally every 8 hrs Sertraline HCl 100 MG Tablet TAKE 1 TABLET BY MOUTH EVERY DAY Oral Crestor dexAMETHasone Sodium Phosphate Zoloft BuSpar ASA Medication List reviewed and reconciled with the patientNot-Taking/PRN Paxil Not-Taking/PRN CeleXA Not-Taking/PRN Gabapentin 400 MG Capsule 1 capsule Orally Once a day hs Not-Taking/PRN Keflex 500 MG Capsule 1 capsule Orally every 12 hrs Not- Taking/PRN Keflex 500 MG Capsule 1 capsule Orally every 8 hrs Not-Taking/PRN Sertraline HCl 100 MG Tablet TAKE 1 TABLET BY MOUTH EVERY DAY Oral Not-Taking/PRN Crestor Not- Taking/PRN dexAMETHasone Sodium Phosphate Not-Taking/PRN Zoloft Not-Taking/PRN BuSpar Not-Taking/PRN ASA Medication List reviewed and reconciled with the patient * Allergies:?Lipitor: anaphyla xisDoxycycline: anaphylaxisyes[Allergies Verified] Objective: * Vitals:?Ht: 5 ft 4 in, Wt: 1 93, BMI: 33.12, Shoe size: 8.5, BP: 128/80 mm Hg, BS: 119, Ht-cm: 162.56 cm, Wt-k.54 kg. * ???Past Orders: ???Lab:HEMOGLOBIN A1C (GLYCO HEMOGLOBIN) (Order Date - 03/10/2024) (Collection Date & Time - 03/10/2024 02:06 PM) ? Value Reference Range ?HEMOGLOBIN A1C % (HH) 6.8 * Examination: ???Ophthalmology Referral: ?DIABETES EYE EXAM?Neurological: ?SENSORY:? Neurological exam demonstrates, reduced light touch sensation, reduced sharp/dull pin prick discrimination , B/L, 5.07 monofilament test performed at plantar aspects of 5 varied sites per foot shows sensation, reduced , B/L.?Nails: ?NAILS are:?Elongated, overgrown, dystrophic, lytic, greater than 3mm thick, discolored and friable with crumbly malodorous subungual debris, TA, T1, T2, T3, T4, T5, T6, T7, T8, T9.?Dermatologic: ?SKIN FINDINGS:?Skin exam reveals Keratotic lesion(s) located at, TA, T5, T6, SUB MTH (s), 3, 4, Left.?Vascular: ?DP PULSES (B):?2/4, B/L.?PT PULSES (B):?1/4, B/L.?Orthopedic: ?MUSCLE STRENGTH:?5/5 all groups in a symmetrical fashion, B/L.?General Examination: ?GENERAL APPEARANCE:?Reveals a pleasant, alert, well nourished, well- developed, well hydrated individual, who demonstrates proper attention to hygiene/body habitus, and is in no acute distress, Pt serves as own historian for office visit today.?ORIENTED:?person, place, and time.? Assessment: * Assessment: 1.?Type 2 diabetes mellitus with diabetic polyneuropathy - E11.42 (Primary)???2.?Tinea unguium - B35.1??? Plan: * Treatment: * Procedures:?Debride Nail 6-10:?Nail debridement?Due to the clinical pathology outlined in the exam findings, performance of this nail treatment is medically necessary as its management by an unskilled/untrained nonprofessional would put this patients foot and overall health at risk. Therefore, debridement to affected nail(s), as described in exam ( TA, T1, T2, T3, T4, T5, T6, T7, T8, T9, ), was performed exclusively by the physician of record to reduce/remove overall nail length, girth, thickness, subungual debris, and necrotic tissue, by manual and/or electrical means through the use of a nail nipper and/or dremel-type computer numerical control grinder, to a more viable healthy nail plate or bed tissue 6- 10 nails in total. Silver nitrate was used for any petechial bleeding as necessary. Definitive antifungal treatment options, both pharmaceutical and surgical, have been reviewed and discussed with the patient. The patient solely prefers the use of intermittent/as needed professional debridement services for their nail condition and understands the need for additional periodic treatments to maintain effectiveness in symptomatic relief - 47946.?Keratoma Treatment:?Parring or Cutting of Benign Hyperkeratotic Lesion(s)?(-57) More than 4 Lesions - Due to the at risk nature of the patients medical condition as documented in the exam findings, performance of this keratoderma treatment is medically necessary as its management by an unskilled/untrained nonprofessional would put this patients foot and overall health at risk. Therefore, the benign hyperkeratotic lesions, ( 5 ) in total, locations as stated and described in the exam (?TA,?T5,?T6,?SUB MTH (s),?3,?4,?Left), were pared, and/or cut utilizing a sterile 15 blade, tissue nippers, and/or power dremel instrumentation by the physician of record - 02043.? * Procedure Codes:?76670 DEBRI DE NAIL, 6 OR MORE, Modifiers: XS 45402 TRIM SKIN LESIONS, OVER 4, Modifiers: XS * Follow Up:?3 Months * Images: * Sign off status: Completed true * Provider:?Sarah Hicks, ANGIE Date:? Generated for Dandy mccarty/Patric/Macarena on:?06/05/2024 06:38 PM EST History and Physical Notes * HPI (History of Present Illness) Category Sub-Category Detail Notes Category Not es At Risk footcare Pt States Last PCP Visit: Date: 4 Examination Category Sub-Category Detail Notes Category Not es Neurological SENSORY: Neurological exa m demonstrates, reduced light touch sensation, reduced sharp/dull pin prick discrimination , B/L, 5.07 monofilament test performed at plantar aspects of 5 varied sites per foot shows sensation, reduced , B/L Dermatologic SKIN FINDINGS: Skin exam reveal s Keratotic lesion(s) located at, TA, T5, T6, SUB MTH (s), 3, 4, Left Orthopedic MUSCLE STRENGTH: 5/5 all groups in a symmetrical fashion, B/L General Examination GENERAL APPEARANCE: Reveals a pleasant, alert, well nourished, well-developed, well hydrated individual, who demonstrates proper attention to hygiene/body habitus, and is in no acute distress, Pt serves as own historian for office visit today ORIENTED: person, place, and t abhishek Ophthalmology Referral DIABETES EYE EXAM Procedure Perform ed:: Yes ?Date of Exam Performed: 05/24/2024 Findings of Diabetic Eye Exam:: no retin opathy Vascular DP PULSES (B): 2/4, B/L PT PULSES (B): 1/4, B/L Nails NAILS are: Elongated, overg rown, dystrophic, lytic, greater than 3mm thick, discolored and friable with crumbly malodorous subungual debris, TA, T1, T2, T3, T4, T5, T6, T7, T8, T9
--- OUTSIDE RECORDS SUMMARY | 2024-06-05 18:38 | XMS_ITS ---
Author Organization [facility] Address [address] [place] [address] Care Team Providers Care Product Owner Name Role Phone Jose Schultz Primary Care Provider Unav ailable Carly Estrada Unavailable [phone] Encounters Encounter Location Date Provider Diagnosis [facility] [address] [place] [address] 04/12/2024 Carly Estrada Plan Of Treatment Next Appt Details Provider Name:Sarah Erin goodrich, 08/30/2024 02:45:00 PM, [address] [place], [address], Progress Notes * Eve PAREDES ADOB:1934 (89 yo F)Acc No.[id number]:04/12/2024 Progress Note Patient:?Eve PAREDES Provider:?Carly Estrada DPM :1935???Age:89 Y???Sex:Female D ate:04/12/2024 Address:[address], [address], [place] Pcp:HI Campbell Subjective: * Chief Complaints: * [...] DPM Date:?1 06/13/2023 Generated for Dandy mccarty/Patric/Macarena on:?06/05/2024 06:38 PM EST
--- OUTSIDE RECORDS SUMMARY | 2024-06-05 18:39 | XMS_ITS ---
Author Organization [facility] Address [address] [place] [address] Care Team Providers Care Director Of Student Services Name Role Phone Jose Schultz Primary Care Provider Unav juanable Estrada, Carly Unavailable [phone] Vishnu Forbes Unavailable [phone] REASON FOR VISIT Transfer to Different Provider Encounters Encounter Location Date Provider Diagnosis [address] [address] 04/12/2024 Vishnu Forbes Plan Of Treatment Next Appt Details Provider Name:Sarah goodrich, 08/30/2024 02:45:00 PM, [address] [place] [address], [address], Progress Notes * Eve PAREDES ADOB:1934 (89 yo F)Acc No.[id number]:04/12/2024 Progress Note Patient:?Eve PAREDES Provider:?Vishnu Forbes DPM :1935???Age:89 Y???Sex:Female D ate:04/12/2024 [facility] [facility] [address] [id number] Pcp:HI Campbell Subjective: * Chief Complaints: * [...] DPM Date:? 024 Generated for Dandy mccarty/Patric/Macarena on:?06/05/2024 06:38 PM EST
== END 2024-06-05 15:03 | disposition home or self-care (01) ==
PROVIDERS: PCP Nurse Practitioner Family; Visit Provider Nurse Practitioner Family
DX: Z78.0 Asymptomatic menopausal state (principal); E11.9 Type 2 diabetes mellitus without complications

== ENCOUNTER → 2024-06-05 14:09 | Outpatient (BNVA) | payer MEDICARE, OTHER, SELFPAY | PROVIDERS: PCP Nurse Practitioner Family; Visit Provider Nurse Practitioner Family | DX: E11.9 Type 2 diabetes mellitus without complications (principal); Z78.0 Asymptomatic menopausal state | CPT/HCPCS: 96127; 99212 ==

== ENCOUNTER 2024-06-28 12:53 | Outpatient (REF) | payer MEDICARE, OTHER, SELFPAY ==
--- OUTSIDE RECORDS SUMMARY | 2024-06-28 13:02 | XMS_ITS ---
Author Organization [facility] Address [address] [place] [address] Care Team Providers Care Hunter Trapper Name Role Phone Jose Schultz Primary Care Provider Unav ailable Carly Estrada Unavailable [phone] Encounters Encounter Location Date Provider Diagnosis [facility] [address] [place] [address] 04/12/2024 Carly Estrada Plan Of Treatment Next Appt Details Provider Name:Sarah Erin goodrich, 08/30/2024 02:45:00 PM, [address] [place], [address], Progress Notes * Eve PAREDES ADOB:1934 (89 yo F)Acc No.[id number]:04/12/2024 Progress Note Patient:?Eve PAREDES Provider:?Carly Estrada DPM :1935???Age:89 Y???Sex:Female D ate:04/12/2024 Address:[address], [address], [place] Pcp:HI Campbell Subjective: * Chief Complaints: * [...] DPM Date:?1 06/13/2023 Generated for Dandy mccarty/Patric/Macarena on:?06/28/2024 01:02 PM EST
--- OUTSIDE RECORDS SUMMARY | 2024-06-28 13:03 | XMS_ITS ---
Author Organization [facility] Address [address] [facility] [place] [address] Care Team Providers Care Biometrics Analyst Name Role Phone Jose Schultz Primary Care Provider Claude CastellonCarly beaver Unavailable [phone] VanitaSarah goodrich Unavailable [phone] Allergies Allergen (clinical drug ingredient) Drug/Non Drug [...] Polyneuropathy due to type 2 diabetes mellitus ([id number]) Type 2 diabetes mellitus with diabetic polyneuropathy (E11.42) Active confirmed Vital Signs Height 5 ft 4 in in 05/31/2024 Weight 193 lbs 05/31/2024 BMI 33.12 kg/m2 05/31/2024 Blood pressure systolic 128 mm Hg 05/31/19 25 Blood pressure diastolic 80 mm Hg 025 Encounters Encounter Location Date Provider Diagnosis [facility] [address] [address] 05/31/2024 aSrah Hicks Type 2 diabetes mellitus with diabetic polyneuropathy E11.42 and Tinea unguium B35.1 Assessments Encounter Date Diagnosis (ICD Code) Assessment Notes Treatment Notes Treatment Clinical Notes Section Notes 05/31/2024 Type 2 diabetes mellitus with diabetic polyneuropathy (ICD-10 - E11.42) 05/31/2024 Tinea unguium (ICD-10 - B35.1) Plan Of Treatment Next Appt Details Follow Up: 3 Months, Reason: Provider Name:Sarah goodrich, 08/30/2024 02:45:00 PM, [address] [place] [address], [address], Procedure Notes * Category Sub-Category Detail Notes [...] use of a nail nipper and/or dremel-type grinder setup operator, to a more viable healthy nail plate [...] to maintain effectiveness in symptomatic relief - 62958 Keratoma Treatment Parring or Cutting o f [...] instrumentation by the physician of record - 08141 Progress Notes * Shanell PAREDESne ADOB:1934 (89 yo F)Acc No.[id number]:05/31/2024 Progress Note Patient:?Eve PAREDES Provider:?Sarah Hicks DPM :1935???Age:89 Y???Sex:Female D ate:05/31/2024 Address:[address] [place] [address], [address], [place] [facility] Pcp:HI Campbell Subjective: * Chief Complaints: * [...] Capsule 1 capsule Orally [facility] a day [facility] MG Capsule 1 capsule Orally every [...] use of a nail nipper and/or dremel-type grinder setup operator, to a more viable healthy nail plate [...] to maintain effectiveness in symptomatic relief - 19410.?Keratoma Treatment:?Parring or Cutting of Benign Hyperkeratotic Lesion(s)?(-57) [...] instrumentation by the physician of record - 34218.? * Procedure Codes:?27386 DEBRI DE NAIL, 6 OR MORE, Modifiers: XS 95997 TRIM SKIN LESIONS, OVER 4, Modifiers: XS * Follow Up:?3 Months * Images: * Sign off status: Completed true * Provider:?Sarah Hicks, ANGIE Date:? Generated for Dandy mccarty/Patric/Macarena on:?06/28/2024 01:02 PM EST History and Physical Notes * [...]
--- OUTSIDE RECORDS SUMMARY | 2024-06-28 13:03 | XMS_ITS ---
Author Organization [facility] Address [address] [place] [address] Care Team Providers Care Making Department Preparer Name Role Phone Jose Schultz Primary Care Provider Unav ailable Carly Estrada Unavailable [phone] Encounters Encounter Location Date Provider Diagnosis [facility] [address] [place] [address] 06/08/2024 Carly Estrada Plan Of Treatment Next Appt Details Provider Name:Sarahwesley goodrich, 08/30/2024 02:45:00 PM, [address] [place], [address], Progress Notes * Eve PAREDES ADOB:1934 (89 yo F)Acc No.[id number]:06/08/2024 Progress Note Patient:?Eve PAREDES Provider:?Carly Estrada DPM :1935???Age:89 Y???Sex:Female D ate:06/08/2024 Address:[address], [place] Pcp:HI Campbell Subjective: * Chief Complaints: * ??? * Medical History:? Objective: * Vitals:? Assessment: Plan: * Treatment: * Images: * The named appointment provid er may or may not be the originator of this progress note, and it is not deemed complete until electronically signed by the appointment provider. Sign off status: Pending * Provider:?Carly Estrada DPM Date:?0 06/08/2024 Generated for Dandy mccarty/Patric/Macarena on:?06/28/2024 01:03 PM EST
[2024-06-28 16:45] LABS: Estimated Average Glucose 134 mg/dL; Hemoglobin A1C 148.4352 umol/L; Hemoglobin A1c % 6.3 % (<6.0); Total Hemoglobin (HGBA1C) 3294.3276 umol/L
== END 2024-06-28 12:54 | disposition home or self-care (01) ==
LOC: HO.HMGCLDS 12:53
PROVIDERS: PCP Nurse Practitioner Family; Visit Provider Nurse Practitioner Family
DX: E11.9 Type 2 diabetes mellitus without complications (principal)
CPT/HCPCS: 36415; 83036

== ENCOUNTER 2024-07-13 10:45 | Outpatient (REF) | payer MEDICARE, OTHER, SELFPAY ==
--- NOTE | ~2024-07-13 | MM_ITS ---
EXAMINATION: DXA BONE DENSITY AXIAL HISTORY: Estrogen deficiency TECHNIQUE: Unight Dual energy absorptiometry (DEXA) of the lumbar spine, total left hip, and femoral neck was performed. COMPARISON: There are no prior studies for comparison. FINDINGS: The bone mineral density of the lumbar spine is 1.662 with a T-score of 4.1, and a Z-score of 5.4. The bone mineral density of the left total hip is 1.035 with a T-score of 0.2, and a Z-score of 2.1. The bone mineral density of the left femoral neck is 0.989 with a T-score of -0.4, and a Z-score of 1.7. MM/XR DEXA axial skeleton IMPRESSION: Based on bone mineral density, and according to World Health Organization (WHO) criteria, the diagnosis is consistent with normal bone mineral density. All bone density values are in grams per centimeter squared (g/cm2). Statistically, 68% of repeat scans fall within 1 SD (+/- 0.010 g/cm2 for AP spine L1-L4) and 1 SD (+/- 0.012 g/cm2 for femur total) FRAX is a trademark of the [employer]'s [place] for Metabolic Bone Disease, a World Health Organization (WHO) Collaborating Center. Electronically signed by: Fidel Pope MD 07/14/2024 07:45 AM [facility]
--- OUTSIDE RECORDS SUMMARY | 2024-07-13 13:04 | XMS_ITS ---
Author Organization [facility] Address [address] [place] [address] Care Team Providers Care Start Up Specialist Name Role Phone Jose Schultz Primary Care Provider Unav ailable Carly Estrada Unavailable [phone] Encounters Encounter Location Date Provider Diagnosis [facility] [address] [place] [address] 04/12/2024 Carly Estrada Plan Of Treatment Next Appt Details Provider Name:Sarah Erin goodrich, 08/30/2024 02:45:00 PM, [address] [place], [address], Progress Notes * Eve PAREDES ADOB:1934 (89 yo F)Acc No.[id number]:04/12/2024 Progress Note Patient:?Eve PAREDES Provider:?Carly Estrada DPM :1935???Age:89 Y???Sex:Female D ate:04/12/2024 Address:[address], [place] Pcp:HI Campbell Subjective: * Chief Complaints: * [...] DPM Date:?1 06/13/2023 Generated for Dandy mccarty/Patric/Macarena on:?07/13/2024 01:04 PM EST
--- OUTSIDE RECORDS SUMMARY | 2024-07-13 13:04 | XMS_ITS ---
Author Organization [facility] Address [address] [place] [address] Care Team Providers Care Commercial Intelligence Manager Name Role Phone Jose Schultz Primary Care Provider Unav ailable Carly Estrada Unavailable [phone] Encounters Encounter Location Date Provider Diagnosis [facility] [address] [place] [address] 06/08/2024 Carly Estrada Plan Of Treatment Next Appt Details Provider Name:Sarahwesley goodrich, 08/30/2024 02:45:00 PM, [address] [place], [address], Progress Notes * Eve PAREDES ADOB:1934 (89 yo F)Acc No.[id number]:06/08/2024 Progress Note Patient:?Eve PAREDES Provider:?Carly Estrada DPM :1935???Age:89 Y???Sex:Female D ate:06/08/2024 Address:[address], [address], [place] Pcp:HI Campbell Subjective: * Chief Complaints: * [...] DPM Date:?0 06/08/2024 Generated for Dandy mccarty/Patric/Macarena on:?07/13/2024 01:04 PM EST
--- OUTSIDE RECORDS SUMMARY | 2024-07-13 13:04 | XMS_ITS | Patient Health Record ---
Author [facility] Address [address] [facility] [place] [address] Care Team Providers Care Tool Coordinator Name Role Phone Jose Schultz Primary Care Provider Carly Christensen Unavailable [phone] Vishnu Forbes Unavailable [phone] Sarah Hicks Unavailable [phone] Allergies Allergen (clinical drug ingredient) Drug/Non Drug Allergy documented on EMR Reaction Allergy Type Onset Date Status atorvastatin Lipitor anaphylaxis Drug Allergy Ac tive doxycycline Doxycycline anaphylaxis Drug Allergy A ctive Results Component Value Reference Range Notes HEMOGLOBIN A1C (GLYCOHEMOGLO BIN) Reviewed date:02/23/2024 02:28:48 PM Interpretation: Performing Lab: Notes/Report: TOTAL HEMOGLOBIN (HGBA1C) 6.8 HEMOGLOBIN A1C (GLYCOHEMOGLO BIN) Reviewed date:05/31/2024 02:06:42 PM Interpretation: Performing Lab: Notes/Report: HEMOGLOBIN A1C % (HH) 6.8 Reason For Referral No Information Medications Medication SIG (Take, Route, Frequency, Duration) Notes Start Date End Date Status Metoprolol Tartrate 50 MG TAKE 1 TABLET BY MOUTH TWICE A DAY Oral for 90 Active Zoloft Not-Taking Levothyroxine Sodium 75 MCG TAKE 1 TABLE T BY MOUTH EVERY MORNING ON AN EMPTY STOMACH Orally Once a day Active dexAMETHasone Sodium Phosphate Not-Taking Naproxen 500 MG 1 tablet with food or milk as needed Orally every 12 hrs for 30 days PRN 10/21/2017 Active ASA Not-Taking metFORMIN HCl 500 MG as directed Orally Twice a day Active BuSpar Not-Taking Paxil Not-Taking Lasix Active Gabapentin 400 MG 1 capsule Orally Once a day hs for 10 days 10/21/2017 Not-Taking CeleXA Not-Taking Water Pills Active Keflex 500 MG 1 capsule Orally every 8 hrs for 10 days Not-Taking Trulicity Active Keflex 500 MG 1 capsule Orally every 12 hrs for 10 day(s) 10/21/2017 Not-Taking hydroCHLOROthiazide 12.5 MG TAKE 1 CAPSU LE BY MOUTH EVERY DAY FOR 90 DAYS Oral for 90 Active Crestor Not-Taking amLODIPine Besylate 5 MG TAKE 1 TABLET B Y MOUTH EVERY DAY Oral for 90 Active Sertraline HCl 100 MG TAKE 1 TABLET BY MOUTH EVERY DAY Oral for 90 Not-Taking Immunizations Vaccine Route Administration Date Status Comme [...] Polyneuropathy due to type 2 diabetes mellitus (680729707) Type 2 diabetes mellitus with diabetic polyneuropathy (E11.42) Active confirmed Problem Neurologic disorder associated with type II diabetes mellitus (687475149) 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 confirmed Problem Localized, primary osteoarthritis of the ankle and/or foot (046801507) Primary osteoarthritis, left ankle and foot (M19.072) Active confirmed Problem Acquired hammer toe of right foot (2640581268159284 ) Other hammer toe(s) (acquired), right foot (M20.41) Active confirmed Problem Acquired hammer toe of left foot (6513099606201308 ) Other hammer toe(s) (acquired), left foot (M20.42) Active confirmed Vital Signs Blood pressure diastolic 80 mm Hg 05/31/2024 Height 5 ft 4 in in 05/31/2024 Blood pressure systolic 128 mm Hg 05/31/2024 Weight 193 lbs 05/31/2024 BMI 33.12 kg/m2 05/31/2024 Procedures Procedure Date Ordered Date Performed Result Body Sit e 05867-YRVNEIV NAIL, 6 OR MORE 02/23/2024 N/A 91112-PQBK SKIN LESIONS, 2 TO 4 02/23/2024 N/A Encounters Encounter Location Date Provider Diagnosis [address] [address] 08/09/2023 Vishnu Forbes Pain in right foot M79.671 ; Ingrowing nail L60.0 ; Pain in left foot M79.672 ; Tinea unguium B35.1 ; Type 2 diabetes mellitus with other diabetic neurological complication E11.49 ; Pain in right toe(s) M79.674 ; Metatarsalgia, left foot M77.42 ; Pain in left toe(s) M79.675 and Primary osteoarthritis, left ankle and foot M19.[address] [address] 11/10/2023 Vishnu Forbes Pain in right foot M79.671 ; Ingrowing nail L60.0 ; Pain in left foot M79.672 ; Tinea unguium B35.1 ; Type 2 diabetes mellitus with other diabetic neurological complication E11.49 ; Pain in right toe(s) M79.674 ; Metatarsalgia, left foot M77.42 ; Pain in left toe(s) M79.675 and Primary osteoarthritis, left ankle and foot M19.[address] [address] 02/23/2024 Carly Estrada Tinea unguium B35.1 and Type 2 diabetes mellitus with other diabetic neurological complication E11.[address] [address] 05/31/2024 Sarah Hicks Type 2 diabetes mellitus with diabetic polyneuropathy E11.42 and Tinea unguium B35.[address] [address] 02/08/2024 [facility] [address] [place] [address] 03/17/2024 Carly Estrada Assessments Encounter Date Diagnosis (ICD Code) Assessment Notes Treatment Notes Treatment Clinical Notes Section Notes 08/09/2023 Pain in right foot (ICD-10 - M79.671) 11/10/2023 Pain in right foot (ICD-10 - M79.671) 02/23/2024 Tinea unguium (ICD-10 - B35.1) 02/23/2024 Type 2 diabetes mellitus with other diabetic neurological complication (ICD-10 - E11.49) 05/31/2024 Type 2 diabetes mellitus with diabetic polyneuropathy (ICD-10 - E11.42) 05/31/2024 Tinea unguium (ICD-10 - B35.1) 11/10/2023 Ingrowing nail (ICD-10 - L60.0) 08/09/2023 [...] X ray : Foot, left 3V 02/28/2018 57730-IOFHHVX NAIL, 6 OR MORE 02/28/2018 44749-CRBTMZE NAIL, 6 OR MORE 11/18/2017 82964-RNODUXL NAIL, 6 OR MORE 02/23/2024 33998-LOUFHMS NAIL, 6 OR MORE 02/19/2011 07980-UPKIMSO NAIL, 6 OR MORE 06/10/2011 42675-PYWXKLJ NAIL, 6 OR MORE 01/18/2012 05942-ZUCJCUP NAIL, 6 OR MORE 04/18/2012 76386-JCFKTRX NAIL, 6 OR MORE 11/09/2011 79785-WLFTWLP NAIL, 6 OR MORE 07/18/2012 42716-SIVBROZ NAIL, 6 OR MORE 01/02/2013 30208-ZPYNCDW NAIL, 6 OR MORE 04/03/2013 99424-SJQALEW NAIL, 6 OR MORE 07/31/2013 79344-ODZHZFL NAIL, 6 OR MORE 10/23/2013 17987-WFXSSTM NAIL, 6 OR MORE 01/10/2014 46988-WMULPSM NAIL, 6 OR MORE 03/29/2014 18832-YSNKRJX NAIL, 6 OR MORE 06/07/2014 53512-NABJETI NAIL, 6 OR MORE 08/20/2014 59069-VTQSTSO NAIL, 6 OR MORE 11/15/2014 74098-DKLEPHP NAIL, 6 OR MORE 04/11/2015 84132-UKJCYAX NAIL, 6 OR MORE 07/11/2015 10871-TBZXAEA NAIL, 6 OR MORE 10/21/2015 16631-SFSGNYY NAIL, 6 OR MORE 02/10/2016 20253-QIRQIGA NAIL, 6 OR MORE 06/15/2016 97823-VRXOEKM NAIL, 6 OR MORE 10/12/2016 50048-EHVEXYO NAIL, 6 OR MORE 02/11/2017 11372-KNMVQYO NAIL, 6 OR MORE 06/14/2017 26836-SBVEYIE NAIL, 6 OR MORE 09/13/2017 18031-Rcec Destruction, 1-14 02/19/2011 82159-Feyu Destruction, 1-14 01/18/2012 22119-Asql Destruction, 1-14 06/10/2011 06209-Lluw Destruction, 1-14 08/31/2011 66471-Zgeq Destruction, 1-14 11/09/2011 65034-Zgpndlap Plate 11/09/2011 72714-Iuxowrkr Plate 08/31/2011 03295-Euzfxjqn Plate 06/10/2011 84020-Beitpydk Plate 01/18/2012 60912-Qbzxcauf Plate 07/18/2012 80881-Sbqgzcgs Plate 04/18/2012 47896-Althsceg Plate 01/02/2013 26976-Jkafozec Plate 07/31/2013 90135-Odedatvb Plate 04/03/2013 45022-Xpydckjq Plate 03/29/2014 89504-Vnepucim Plate 05/24/2013 76984-Fdeunzif Plate 01/10/2014 67999-Rjuiqrxq Plate 10/23/2013 40269-Bvtybbsg Plate 06/14/2017 50315-Tfztbjch Plate 02/11/2017 54755-Glpenjcq Plate 03/25/2015 45125-Kerkptia Plate 11/15/2014 69630-Paebwzbh Plate 08/20/2014 08465-Bwkcqgqx Plate 06/07/2014 14767-Mfhnzoiv Plate 11/18/2017 06097-Dfhoiyag Plate Each Additional 60705-Mafaqati Plate Each Additional 50451-Tbptuzsw Plate Each Additional 01/2015 89084-Brujiihk Plate Each Additional 09194-Qdxrgbrj Plate Each Additional 12506-Vvngfgwy Plate Each Additional 68076- Debride <25 sq cm 04/11/2015 00337-TPOX SKIN LESIONS, OVER 4 11/16/19 15 78263-RZQL SKIN LESIONS, OVER 4 08/21/19 15 09704-JIVG SKIN LESIONS, OVER 4 06/07/19 15 04724-WVFD SKIN LESIONS, OVER 4 02/12/20 17 15635-QPUZ SKIN LESIONS, OVER 4 09/14/19 18 26657-TYOD SKIN LESIONS, OVER 4 06/15/19 17 65009-LHGN SKIN LESIONS, OVER 4 10/13/19 17 46135-ZZXO SKIN LESIONS, OVER 4 04/18/20 12 17460-RMYU SKIN LESIONS, OVER 4 07/19/19 13 72826-HVYK SKIN LESIONS, OVER 4 01/03/20 13 29796-XJZQ SKIN LESIONS, OVER 4 04/03/20 13 45436-OSEK SKIN LESIONS, OVER 4 08/01/19 14 74206-QCCT SKIN LESIONS, OVER 4 03/29/20 14 58822-HMLS SKIN LESIONS, OVER 4 10/24/19 14 70947-DYJQ SKIN LESIONS, OVER 4 01/11/20 14 58626-AABQ SKIN LESIONS, OVER 4 06/05/19 21 98922-PIZT SKIN LESIONS, OVER 4 10/03/19 21 49000-XZWN SKIN LESIONS, 2 TO 4 01/07/20 21 42578-UEAB SKIN LESIONS, 2 TO 4 04/14/20 21 49220-TPSQ SKIN LESIONS, 2 TO 4 07/29/19 22 28743-KHIK SKIN LESIONS, 2 TO 4 02/23/20 24 10237-NLFY SKIN LESIONS, 2 TO 4 02/29/20 18 27071-UDMH SKIN LESIONS, 2 TO 4 09/02/19 19 24758-KASF SKIN LESIONS, 2 TO 4 12/30/19 19 15319-EZOG SKIN LESIONS, 2 TO 4 04/26/20 19 10312-WJSY SKIN LESIONS, 2 TO 4 07/31/19 20 93671-PBMB SKIN LESIONS, 2 TO 4 12/04/19 20 58611-YUWO SKIN LESIONS, 2 TO 4 02/05/20 20 33974-WALG SKIN LESIONS, 2 TO 4 11/19/19 18 34260-WLED SKIN LESIONS, 2 TO 4 02/10/20 16 19791-KYQN SKIN LESIONS, 2 TO 4 10/21/19 16 42014-STKU SKIN LESIONS, 2 TO 4 07/11/19 16 56069-MBEJ SKIN LESIONS, 2 TO 4 06/14/19 18 27893-JMES SKIN LESIONS, 2 TO 4 04/11/20 15 50664- Unna Boot 11/09/2017 99052- Nail Unit Biopsy 01/17/2018 07254- Nail Unit Biopsy 09/13/2017 Next Appt Details Provider Name:Sarah Goodrich Vanita goodrich, 08/30/2024 02:45:00 PM, [address] [facility], [place], [address], Insurance Providers Payer Name Payer Address Payer Phone Subscriber Number Group Number Insured Name Patient Relationship to Insured Coverage Start Date Coverage End Date Medicare National Govt [employer] [address] [facility] [place] [address] [id number] Eve Musa Self - patient is the insured 5 [employer] [address] [place] [address] [phone] [id number] LenchoEve Self - patient is the insured Medical (General) History Medical History History ICD Code measles hypertension diverticulitis chicken pox Cholesterol Arthritis Anxiety disorder type II diabetes Cataracts Surgical History Surgery Date(Month/Year) colon/intestinal surgery 2006 hysterectomy 1965 tubal ligation 1956 Ostectomy L3rdMT, HT L2nd,3rd 10/28/17 cataract surgery Hospitalization History Reason Date(Month/Year) [facility] - broke hip/pt fell 04/28/2018 [facility] pt fell from a ladder and hurt tailbone 2016
--- OUTSIDE RECORDS SUMMARY | 2024-07-13 13:04 | XMS_ITS ---
Author [facility] Address [address] [facility] [place] [address] Care Team Providers Care Mobile Pet Groomer Name Role Phone Jose Schultz Primary Care Provider Claude CastellonCarly beaver Unavailable [phone] VanitaSarah goodrich Unavailable [phone] Allergies Allergen (clinical drug ingredient) Drug/Non Drug [...] Polyneuropathy due to type 2 diabetes mellitus (802708349) Type 2 diabetes mellitus with diabetic polyneuropathy (E11.42) Active confirmed Vital Signs Height 5 ft 4 in in 05/31/2024 Weight 193 lbs 05/31/2024 BMI 33.12 kg/m2 05/31/2024 Blood pressure systolic 128 mm Hg 05/31/19 25 Blood pressure diastolic 80 mm Hg 025 Encounters Encounter Location Date Provider Diagnosis [facility] [address] [address] 05/31/2024 Sarah Hicks Type 2 diabetes mellitus [...] Reason: Provider Name:Sarah goodrich, 08/30/2024 02:45:00 PM, [address] [place] [address], [address], Procedure Notes * Category Sub-Category Detail Notes [...] use of a nail nipper and/or dremel-type pulp grinder feeder, to a more viable healthy nail plate [...] to maintain effectiveness in symptomatic relief - 45478 Keratoma Treatment Parring or Cutting o f [...] instrumentation by the physician of record - 86750 Progress Notes * Shanell PAREDESne ADOB:1934 (89 yo F)Acc No.[id number]:05/31/2024 Progress Note Patient:?Eve PAREDES Provider:?Sarah Hicks DPM :1935???Age:89 Y???Sex:Female D ate:05/31/2024 Address:[address] [place] [address], [address], [place] [facility] Pcp:HI Campbell Subjective: * Chief Complaints: * [...] Capsule 1 capsule Orally Once a day [facility] 500 MG Capsule 1 capsule Orally every [...] 6.8 * Examination: ???Ophthalmology Referral: ?DIABETES EYE EXAM?Procedure Performed:?Yes ?Date of Exam Performed?05/24/2024 ?Findings of Diabetic Eye Exam:?no retinopathy?Neurological: ?SENSORY:? Neurological exam demonstrates, reduced light touch [...] MTH (s), 3, 4, Left.?Vascular: ?DP PULSES (B):?06/13, B/L.?PT PULSES (B):?05/13, B/L.?Orthopedic: ?MUSCLE STRENGTH:?5/5 all groups in a [...] use of a nail nipper and/or dremel-type pulp grinder feeder, to a more viable healthy nail plate [...] to maintain effectiveness in symptomatic relief - 45838.?Keratoma Treatment:?Parring or Cutting of Benign Hyperkeratotic Lesion(s)?(-57) [...] instrumentation by the physician of record - 91215.? * Procedure Codes:?64830 DEBRI DE NAIL, 6 OR MORE, Modifiers: XS 47266 TRIM SKIN LESIONS, OVER 4, Modifiers: XS * Follow Up:?3 Months * Images: * Sign off status: Completed true * Provider:?Sarah Hicks DPM Date:? Generated for Dandy mccarty/Patric/Macarena on:?07/13/2024 01:04 PM EST History and Physical Notes * [...]
== END 2024-07-13 10:46 | disposition home or self-care (01) ==
LOC: HO.MAMMO 10:45
PROVIDERS: Visit Provider Nurse Practitioner Family
DX: Z13.820 Encounter for screening for osteoporosis (principal); Z78.0 Asymptomatic menopausal state
CPT/HCPCS: 77080

== ENCOUNTER → 2024-07-13 11:00 | Outpatient (BNV) | payer MEDICARE, OTHER, SELFPAY | PROVIDERS: Visit Provider Radiology Diagnostic Radiology | DX: E28.39 Other primary ovarian failure (principal) | CPT/HCPCS: 77080 ==

== ENCOUNTER 2024-07-27 16:01 | Outpatient (AMB) | payer MEDICARE, OTHER, SELFPAY ==
--- NOTE | 2024-07-27 16:04 | MHC.OFFWIV ---
Intake Vital Signs 07/27/24 16:05 Weight 197 lb BP 122/80 Blood Pressure Location Rt brachial Position Sitting Pulse 74 Pulse Source Pulse Oximeter Pulse Oximetry (%) 97 Oxygen Delivery Method Room Air Intake Visit Reasons: EP-lower abdomen pain and lower back pain Intake Note: Patient here for lower abdominal pain that worsens when laying down but has been present for about 4 days. Patient Tobacco Use Status: Former Tobacco user Allergies atorvastatin [From LIPITOR] Allergy (Severe, Verified 07/27/24 16:06) ANGIOEDEMA doxycycline [DOXYCYCLINE] Allergy (Severe, Verified 07/27/24 16:06) ANAPHYLAXIS, ANGIOEDEMA nitrofurantoin [From Macrobid] Allergy (Mild, Verified 07/27/24 16:17) unclear Do you need a note to return to daycare/school/sports/work: No HPI HPI Comments History of Present Illness Details Patient is an 89-year-old female complaining of 4 days of lower abdominal pain and low back pain. She thought it would go away so she did not do anything about it but she states it is getting a little bit worse. She has not noticed any increase in frequency of urination or burning with urination. She also denies recent fevers or history of kidney stones. She has brought in her own clean-catch today as she was given some supplies in May that she never used. She tells me she did refrigerated the sample all day but it is from this morning. [facility] Surgical History History of colon resection History of rectal surgery History of hemiarthroplasty of right hip History of hemiarthroplasty of left hip Hx of appendectomy Hx of hysterectomy Social History Housing: Apartment Patient Tobacco Use Status: Former Tobacco user e-Cigarette/Vaping Use: Never Used service: No Current occupational status: retired Cognitive needs: No Hearing needs: No Vision needs: Yes Review of Systems Const All systems reviewed & are unremarkable except as noted in HPI and below Physical Exam Vital Signs: Last Vital Signs Pulse 74 07/27/24 16:05 BP 122/80 07/27/24 16:05 Pulse Ox 97 07/27/24 16:05 Oxygen Delivery Method Room Air 07/27/24 16:05 Const General: cooperative, healthy appearing, comfortable and no acute distress Orientation/consciousness: patient oriented x3 HEENT Head: Yes normal to inspection Ears: hearing grossly normal bilaterally General nose exam: Normal external nose present Face and sinus: Yes normal facial exam Neck Neck: Yes normal visual inspection, Yes trachea midline and Yes supple Resp Effort & Inspection: normal respiratory effort and able to speak in complete sentences GI Inspection: Yes normal to inspection Palpation (GI): Soft to palpation and Tenderness to palpation present (GI) suprapubicly Skin General skin exam: no rashes or lesions noted Neuro General: patient oriented x3 Psych Appearance: grossly normal Speech and movement: Normal speech and movement present Attitude: cooperative Thought process: Normal thought process present Insight: Good insight present (Psych) Judgement: Good judgement present (Psych) Results AMB Urinalysis, Automated UA Leukoctes 15 Criss/uL Last Edit by Leah Goldberg [facility] on 07/27/24 16:20 UA Nitrite Negative Last Edit by Leah Goldberg [facility] on 07/27/24 16:20 UA Urobilinogen 0.2 mg/dL Last Edit by SolaTeresa Goldberg [facility] on 07/27/24 16:20 UA Protein 15 mg/dL Last Edit by SolaTeresa Goldberg [facility] on 07/27/24 16:20 UA pH 6.0 Last Edit by Leah Goldberg [facility] on 07/27/24 16:20 UA Blood 0 Mauro/uL Last Edit by SolaTeresa Goldberg [facility] on 07/27/24 16:20 UA Specific [place] 1.020 Last Edit by Leah Goldberg [facility] on 07/27/24 16:20 UA Ketone Negative Last Edit by SolaMarisol Goldberg [facility] on 07/27/24 16:20 UA Bilirubin 0 mg/dL Last Edit by SolaMarisol Goldberg [facility] on 07/27/24 16:20 UA Glucose 0 mg/dL Last Edit by SolaTeresa Goldberg [facility] on 07/27/24 16:20 Assessment & Plan Assessment & Plan (1) UTI (urinary tract infection): Code(s): N39.0 - Urinary tract infection, site not specified Qualifiers: Urinary tract infection type: acute cystitis Hematuria presence: without hematuria Qualified Code(s): N30.00 - Acute cystitis without hematuria Plan: Patient is well-appearing and vital signs are stable. With suprapubic tenderness and urinalysis showing leukocytes positive, we will treat for urinary tract infection with cefuroxime for 5 days. Did send a culture to confirm. Orders: Orders AMB Urinalysis Automated Today Z13.9 - Encounter for screening, unspecified UA CC w/rflx Micro + Cult Today R10.30 - Lower abdominal pain, unspecified Medications: New cefuroxime axetil 500 mg PO Q12H 10 tabs 0RF Coding Level of Care Code Est Pt Level 3 (37100) Diagnoses Acute cystitis without hematuria N30.00 Urinary tract infection type: acute cystitis Hematuria presence: without hematuria
[2024-07-27 16:05] VITALS: BP 122/80; PULSE 74; O2SAT 97
--- OUTSIDE RECORDS SUMMARY | 2024-07-27 18:00 | XMS_ITS ---
Author Organization [facility] Address [address] [place] [address] Care Team Providers Care Cutter Grind Tool Technician Name Role Phone Jose Schultz Primary Care Provider Unav ailable Carly Estrada Unavailable [phone] Encounters Encounter Location Date Provider Diagnosis [facility] [address] [place] [address] 04/12/2024 Carly Estrada Plan Of Treatment Next Appt Details Provider Name:Sarah Erin goodrich, 08/30/2024 02:45:00 PM, [address] [place], [address], Progress Notes * Eve PAREDES ADOB:1934 (89 yo F)Acc No.[id number]:04/12/2024 Progress Note Patient:?Eve PAREDES Provider:?Carly Estrada DPM :1935???Age:89 Y???Sex:Female D ate:04/12/2024 Address:[address], [address], [place] Pcp:HI Campbell Subjective: * Chief Complaints: * [...] DPM Date:?1 06/13/2023 Generated for Dandy mccarty/Patric/Macarena on:?07/27/2024 06:00 PM EDT
--- OUTSIDE RECORDS SUMMARY | 2024-07-27 18:01 | XMS_ITS | Continuity of Care Document ---
Author Organization [facility] Address [address] [place] [id number] Care Team Providers Care Maintenance Worker Municipal Name Role Phone Lesley MAIN, Jose Keane Primary Care Physician Encounter [facility] Date(s): 03/24/24 - 07/22/24 [facility] [address] [place] [id number] Attending Physician: Araceli De Souza MD Admitting Physician: Araceli De Souza MD Referring Physician: Jose Sutton NP Encounter Type: Pre-OutPatient One Time Allergies, Adverse Reactions, Alerts Substance Criticality Severity Reaction Reaction Severity Status doxycycline Active Lipitor Active Medications amLODIPine 5 mg oral tablet 5 mg, 1, tablet, By Mouth, Daily, Refills 0, Maintenance, 02/11/17 8:35:29 AM EDT Start Date: 02/11/17 Status: Ordered Repeat number: 1 amLODIPine 5 mg oral tablet 90 each, 0 Refill(s), TAKE 1 TABLET (5 MG TOTAL) BY MOUTH DAILY., 0 Refills, 07/07/24 2:30:00 PM EST, Partial fill upon patient request if the prescription is for a schedule II opioid drug. Start Date: 07/07/24 Status: Ordered Repeat number: 1 amoxicillin 500 mg oral capsule 2000 Unknown, Oral, 2 Refill(s), Take 4 capsules (2,000 mg total) by mouth as directed. 4 capsules 1 hour before each dental appointment, 0 Refills, 06/03/22 7:00:00 PM EST, Partial fill upon patient request if the prescription is for a schedule II opioid drug. Start Date: 06/03/22 Status: Ordered Repeat number: 1 ascorbic acid 250 mg oral tablet = 250 mg, By Mouth, 2 times a day with meals, 0 Refills, Maintenance, 05/04/18 12:49:58 PM EST, Tablet Start Date: 05/04/18 Status: Ordered Repeat number: 1 aspirin 81 mg oral enteric coated capsule 1 capsule = 81 mg, By Mouth, Daily, 0 Refills, 01/22/06 9:01:55 PM EDT Start Date: 01/22/06 Status: Ordered Repeat number: 1 bisacodyl 10 mg rectal suppository 1 supp = 10 mg, Rectally, Daily, PRN Constipation, Use if prn MOM ineffective., 0 Refills, Maintenance, 05/04/18 12:49:59 PM EST, Suppository Start Date: 05/04/18 Status: Ordered Repeat number: 1 Caltrate 600 mg oral tablet 1200 mg, 2, tablet, By Mouth, 2 times a day, 0 Refills Start Date: 01/22/06 Status: Ordered Repeat number: 1 Celexa 10 mg oral tablet 10 mg, 1, tablet, By Mouth, Daily, 0 Refills Start Date: 01/22/06 Status: Ordered Repeat number: 1 cholecalciferol 1000 intl units oral tablet = 1,000 International_Units, By Mouth, Daily, 0 Refills, Maintenance, 05/04/18 12:50:01 PM EST, Tablet Start Date: 05/04/18 Status: Ordered Repeat number: 1 Crestor 20 mg oral tablet 1 tablet = 20 mg, By Mouth, Daily at bedtime, 0 Refills, Maintenance, 02/11/17 8:35:43 AM EDT Start Date: 02/11/17 Status: Ordered Repeat number: 1 docusate sodium 100 mg oral capsule 100 mg, 1, capsule, By Mouth, 2 times a day, Refills 0, Maintenance, 05/04/18 12:50:03 PM EST Start Date: 05/04/18 Status: Ordered Repeat number: 1 Enoxaparin 0.4 mL = 40 mg, Subcutaneous Injection, Daily, 0 Refills, Maintenance, 05/04/18 12:50:05 PM EST, Injection Start Date: 05/04/18 Status: Ordered Repeat number: 1 escitalopram 5 mg oral tablet 90 each, 0 Refill(s), TAKE 1 TABLET (5 MG TOTAL) BY MOUTH DAILY., 0 Refills, 11/18/23 9:11:00 AM EDT, Partial fill upon patient request if the prescription is for a schedule II opioid drug. Start Date: 11/18/23 Status: Ordered Repeat number: 1 ferrous sulfate 325 mg oral enteric coated tablet 325 mg, By Mouth, Daily, Refills 0, Maintenance, 05/04/18 12:50:13 PM EST Start Date: 05/04/18 Status: Ordered Repeat number: 1 Fish Oil By Mouth, 0 Refills, Maintenance, 02/11/17 8:36:37 AM EDT Start Date: 02/11/17 Status: Ordered Repeat number: 1 Freestyle Lite Lancets Freestyle Lite Lancets, See Instructions, # 100 each, Refills 11, Tot. Refills 11, Maintenance, Used to test blood glucose 3x/day. E11.9, 07/07/24 3:11:00 PM EST, Supply, 165, cm, 07/07/24 14:33:00 EST, Height Start Date: 07/07/24 Status: Ordered Quantity: 100.0 Unit: each Repeat number: 12 Indication: Type 2 diabetes mellitus with hyperglycemia Freestyle Lite Test Strips See Instructions, # 200 each, Refills 3, Tot. Refills 3, Maintenance, use to check bg 2x day 90 daysupply e 11.9, 10/21/23 3:34:00 PM EDT, Supply, 165, cm, 07/08/23 14:21:00 EST, Height Start Date: 10/21/23 Status: Ordered Quantity: 200.0 Unit: each Repeat number: 4 Freestyle Lite Test Strips Freestyle Lite Test Strips, See Instructions, # 100 each, Refills 11, Tot. Refills 11, Maintenance,Used to test blood glucose 3x/day. E11.9, 07/07/24 3:11:00 PM EST, Supply, 165, cm, 07/07/24 14:33:00 EST, Height Start Date: 07/07/24 Status: Ordered Quantity: 100.0 Unit: each Repeat number: 12 Indication: Type 2 diabetes mellitus with hyperglycemia furosemide 20 mg oral tablet 90 each, 0 Refill(s), TAKE 1 TABLET BY MOUTH EVERY DAY FOR 30 DAYS, Refills 0, 07/07/24 2:30:00 PM EST, Partial fill upon patient request if the prescription is for a schedule II opioid drug. Start Date: 07/07/24 Status: Ordered Repeat number: 1 hydrochlorothiazide 12.5 mg oral tablet 90 each, 0 Refill(s), TAKE 1 TABLET BY MOUTH EVERY DAY, 0 Refills, 11/18/23 9:11:00 AM EDT, Partial fill upon patient request if the prescription is for a schedule II opioid drug. Start Date: 11/18/23 Status: Ordered Repeat number: 1 ketorolac 0.5% ophthalmic solution 10 mL, 0 Refill(s), PLEASE SEE ATTACHED FOR DETAILED DIRECTIONS, 0 Refills, 11/18/23 9:11:00 AM EDT,Partial fill upon patient request if the prescription is for a schedule II opioid drug. Start Date: 11/18/23 Status: Ordered Repeat number: 1 levothyroxine 0.075 mg oral tablet 0 Refills, Maintenance, 02/11/17 8:37:38 AM EDT Start Date: 02/11/17 Status: Ordered Repeat number: 1 levothyroxine 75 mcg (0.075 mg) oral tablet 90 each, 0 Refill(s), TAKE 1 TABLET BY MOUTH EVERY DAY IN THE MORNING, 0 Refills, 11/18/23 9:11:00 AM EDT, Partial fill upon patient request if the prescription is for a schedule II opioid drug. Start Date: 11/18/23 Status: Ordered Repeat number: 1 LORazepam 0.5 mg oral tablet 20 each, 0 Refill(s), TAKE 1/2 TABLET (0.25 MG TOTAL) BY MOUTH EVERY 8 HOURS NEEDED FOR ANXIETY,0 Refills, 11/18/23 9:11:00 AM EDT, Partial fill upon patient request if the prescription is for a schedule II opioid drug. Start Date: 11/18/23 Status: Ordered Repeat number: 1 Maalox Plus Liquid 30 mL, By Mouth, Every 4 hours, PRN Dyspepsia, 0 Refills, Maintenance, 05/04/18 12:49:56 PM EST, Suspension Start Date: 05/04/18 Status: Ordered Repeat number: 1 metFORMIN 1000 mg oral tablet, extended release See Instructions, 1 tablet By Mouth 2 times a day. E11.9, # 60 tablet, 5 Refills, Maintenance, 07/08/23 3:27:00 PM EST, ER Tablet, [facility] #[id number], Partial fill upon patient request if the prescription is for a schedule II opioid drug., 165, cm, 07/08/23 14:21:00 EST, Height Start Date: 07/08/23 Status: Ordered Quantity: 60.0 Unit: tablet Repeat number: 6 metFORMIN 500 mg oral tablet 2 tablet = 1,000 mg, By Mouth, 2 times a day, # 360 tablet, 3 Refills, Maintenance, 07/07/24 3:07:00PM EST, Tablet, [facility]/pharmacy #[id number], Partial fill upon patient request if the prescription is for a schedule II opioid drug., 165, cm, 07/07/24 14:33:00 EST, Height Start Date: 07/07/24 Status: Ordered Quantity: 360.0 Unit: tablet Repeat number: 4 Indication: Type 2 diabetes mellitus with hyperglycemia metFORMIN 750 mg oral tablet, extended release 90 each, 0 Refill(s), TAKE 1 TABLET BY MOUTH DAILY WITH DINNER, 0 Refills, 11/18/23 9:11:00 AM EDT, Partial fill upon patient request if the prescription is for a schedule II opioid drug. Start Date: 11/18/23 Status: Ordered Repeat number: 1 metoprolol 50 mg oral tablet 50 mg, 1, tablet, By Mouth, 2 times a day, 0 Refills Start Date: 01/22/06 Status: Ordered Repeat number: 1 metoprolol 50 mg oral tablet 50 Unknown, Oral, 3 Refill(s), take 1 tablet by mouth twice a day, Refills 0, 05/06/23 7:00:00 PM EST, Partial fill upon patient request if the prescription is for a schedule II opioid drug. Start Date: 05/06/23 Status: Ordered Repeat number: 1 Metoprolol Tartrate 50 mg oral tablet 180 each, 0 Refill(s), TAKE 1 TABLET BY MOUTH TWICE A DAY, 0 Refills, 11/18/23 9:11:00 AM EDT, Partial fill upon patient request if the prescription is for a schedule II opioid drug. Start Date: 11/18/23 Status: Ordered Repeat number: 1 Microzide 12.5 mg oral capsule 1 capsule = 12.5 mg, By Mouth, Daily, 0 Refills, Maintenance, 02/11/17 8:36:26 AM EDT Start Date: 02/11/17 Status: Ordered Repeat number: 1 Milk of Magnesia Liquid 30 mL, By Mouth, 2 times a day, PRN Constipation, 0 Refills, Maintenance, 05/04/18 12:50:15 PM EST,Suspension Start Date: 05/04/18 Status: Ordered Repeat number: 1 MiraLax Powder 1 pack/packet = 17 Gm, By Mouth, Daily, 0 Refills, Maintenance, 05/04/18 12:50:20 PM EST, Powder Start Date: 05/04/18 Status: Ordered Repeat number: 1 mirtazapine 7.5 mg oral tablet 90 each, 0 Refill(s), TAKE 1 TABLET BY MOUTH EVERYDAY AT BEDTIME, 0 Refills, 11/18/23 9:12:00 AM EDT, Partial fill upon patient request if the prescription is for a schedule II opioid drug. Start Date: 11/18/23 Status: Ordered Repeat number: 1 Miscellaneous Rx 0 Refills, 100 each, 0 Refill(s), 11/18/23 9:11:00 AM EDT Start Date: 11/18/23 Status: Ordered Repeat number: 1 MOM Liquid 30 mL, By Mouth, Daily, PRN Constipation, 0 Refills, Maintenance, 05/04/18 12:50:17 PM EST, Suspension Start Date: 05/04/18 Status: Ordered Repeat number: 1 Multivitamin Daily, 0 Refills, Maintenance, 02/11/17 8:35:56 AM EDT Start Date: 02/11/17 Status: Ordered Repeat number: 1 nystatin topical 805863 u/gm cream 30 Gm, 0 Refill(s), 1 APPLICATION TOPICALLY DAILY FOR 14 DAYS, 0 Refills, 07/07/24 2:30:00 PM EST, Partial fill upon patient request if the prescription is for a schedule II opioid drug. Start Date: 07/07/24 Status: Ordered Repeat number: 1 omeprazole 20 mg oral enteric coated capsule 20 mg, 1, capsule, By Mouth, 2 times a day, 0 Refills Start Date: 01/22/06 Status: Ordered Repeat number: 1 omeprazole 20 mg oral enteric coated capsule 180 each, 0 Refill(s), TAKE 1 CAPSULE BY MOUTH TWICE A DAY, 0 Refills, 11/18/23 9:12:00 AM EDT, Partial fill upon patient request if the prescription is for a schedule II opioid drug. Start Date: 11/18/23 Status: Ordered Repeat number: 1 rosuvastatin 20 mg oral tablet 90 each, 0 Refill(s), TAKE 1 TABLET BY MOUTH EVERY DAY, 0 Refills, 11/18/23 9:12:00 AM EDT, Partial fill upon patient request if the prescription is for a schedule II opioid drug. Start Date: 11/18/23 Status: Ordered Repeat number: 1 Senna 8.6 mg oral tablet 8.6 mg, 1, tablet, By Mouth, Daily, Refills 0, Maintenance, 05/04/18 12:50:22 PM EST, Tablet Start Date: 05/04/18 Status: Ordered Repeat number: 1 Trulicity Pen 0.75 mg/0.5 mL subcutaneous solution 0.5 mL = 0.75 mg, Subcutaneous Injection, Every week, rotate injection sites, # 2 mL, 11 Refills, Maintenance, 09/09/23 8:47:00 AM EDT, Solution, [facility], Partial fill upon patient request if the prescription is for a schedule II opioid drug., 165, cm, 07/08/23 14:21:00 EST, Height Start Date: 09/09/23 Status: Ordered Quantity: 2.0 Unit: mL Repeat number: 12 Trulicity Pen 1.5 mg/0.5 mL subcutaneous solution 1.5 Unknown, Subcutaneous, 3 Refill(s), Inject 0.5 mL (1.5 mg total) under the skin every 7 days., 0 Refills, 06/03/23 7:00:00 PM EST, Partial fill upon patient request if the prescription is for a schedule II opioid drug. Start Date: 06/03/23 Status: Ordered Repeat number: 1 Trulicity Pen 1.5 mg/0.5 mL subcutaneous solution 0.5 mL = 1.5 mg, Subcutaneous Injection, Every week, rotate injection sites, # 6.5 mL, 3 Refills, Maintenance, 07/19/24 9:37:00 AM EDT, Solution, [facility], Partial fill upon patientrequest if the prescription is for a schedule II opioid drug., 165, cm, 07/07/24 14:33:00 EST, Height Start Date: 07/19/24 Status: Ordered Quantity: 6.5 Unit: mL Repeat number: 4 Indication: Type 2 diabetes mellitus with hyperglycemia Tylenol 325 mg oral tablet 650 mg, By Mouth, Every 6 hours, Refills 0, Maintenance, 05/04/18 12:49:54 PM EST Start Date: 05/04/18 Status: Ordered Repeat number: 1 UNISON UNISON, By Mouth, Daily, Refills 0, Maintenance, 02/11/17 8:36:52 AM EDT, Compound Start Date: 02/11/17 Status: Ordered Repeat number: 1 Vitamin E By Mouth, Daily, 0 Refills, Maintenance, 02/11/17 8:36:11 AM EDT Start Date: 02/11/17 Status: Ordered Repeat number: 1 Problem List Condition Confirmation Course Effective Dates Status Health St atus Informant Moderate aortic stenosis Confirmed Active HLD (hyperlipidemia) Confirmed Active HTN (hypertension) Confirmed Active Hypothyroid Confirmed Active Glucose intolerance (pre-diabetes) Confirmed Active Elevated liver function tests Confirmed Active Abdominal obesity Confirmed Active Obese class I Confirmed Active Social History Social History Type Response Smoking Status Former smoker, quit more than 30 days ago; Tobacco user in household: No; Other: Quit 2005; entered on: 04/29/18 Sex Sex Representation Female (finding) Patient Care team information Care Team Personnel Name: Madisyn Cabral RN Position: [facility] Nurse Member Role: Primary Care Nurse Name: Jose Sutton NP Position: Reference Physician Member Role: PCP Address: [address] [place] [address] Telecom: Name: Nataliya Davalos RN Position: [facility] Nurse Member Role: Primary Care Nurse Name: Vanesa Mancia RN Position: [facility] RN Member Role: Primary Care Nurse Name: Sherif Christian RN Position: [facility] RN Member Role: Primary Care Nurse Care Team Related Persons Name: LIDACARMENSTONE FofanaA Name: MILAGROS HAN Name: JOEL PAREDES Name: JOEL PAREDES Insurance Providers Guarantor name: MARVIN REGGIE Health Plan Information #: 1 Payer: MEDICARE PART B OUTPT Member Number: [id number] Policy Number: NA Group Number: NA Health Plan Information #: 2 Payer: [facility] Member Number: [id number] Policy Number: NA Group Number: [id number]
--- OUTSIDE RECORDS SUMMARY | 2024-07-27 18:01 | XMS_ITS ---
Author Organization [facility] Address [address] [facility] [place] [address] Care Team Providers Care Ice Cream Man Name Role Phone Jose Schultz Primary Care Provider Claude CastellonCarly beaver Unavailable [phone] VanitaSarah goodrich Unavailable [phone] Allergies Allergen (clinical drug ingredient) Drug/Non Drug [...] Polyneuropathy due to type 2 diabetes mellitus (209340434) Type 2 diabetes mellitus with diabetic polyneuropathy (E11.42) Active confirmed Vital Signs Height 5 ft 4 in in 05/31/2024 Weight 193 lbs 05/31/2024 BMI 33.12 kg/m2 05/31/2024 Blood pressure systolic 128 mm Hg 05/31/19 25 Blood pressure diastolic 80 mm Hg 025 Encounters Encounter Location Date Provider Diagnosis [facility] [address] [address] 05/31/2024 Sarah Hicks Type 2 diabetes mellitus [...] Reason: Provider Name:Sarah goodrich, 08/30/2024 02:45:00 PM, [address] [place] [address], [id number], Procedure Notes * Category Sub-Category Detail Notes [...] use of a nail nipper and/or dremel-type platen grinder, to a more viable healthy nail [...] to maintain effectiveness in symptomatic relief - 81840 Keratoma Treatment Parring or Cutting o f [...] instrumentation by the physician of record - 58602 Progress Notes * Shanell PAREDESne ADOB:1934 (89 yo F)Acc No.[id number]:05/31/2024 Progress Note Patient:?Eve PAREDES Provider:?Sarah Hicks DPM :1935???Age:89 Y???Sex:Female D ate:05/31/2024 Address:[address] [place] [address], [address], [place] [facility] Pcp:HI Campbell Subjective: * Chief Complaints: * [...] Capsule 1 capsule Orally Once a day [facility] 500 MG Capsule 1 capsule Orally every [...] use of a nail nipper and/or dremel-type platen grinder, to a more viable healthy nail [...] to maintain effectiveness in symptomatic relief - 43332.?Keratoma Treatment:?Parring or Cutting of Benign Hyperkeratotic Lesion(s)?(-57) [...] instrumentation by the physician of record - 55366.? * Procedure Codes:?81472 DEBRI DE NAIL, 6 OR MORE, Modifiers: XS 37121 TRIM SKIN LESIONS, OVER 4, Modifiers: XS * Follow Up:?3 Months * Images: * Sign off status: Completed true * Provider:?Sarah Hicks DPM Date:? Generated for Dandy mccarty/Patric/Macarena on:?07/27/2024 06:00 PM EDT History and Physical Notes * HPI (History [...]
--- OUTSIDE RECORDS SUMMARY | 2024-07-27 18:01 | XMS_ITS ---
Author Organization [facility] Address [address] [place] [address] Care Team Providers Care Disability Aide Name Role Phone Jose Schultz Primary Care Provider Unav ailable Carly Estrada Unavailable [phone] Encounters Encounter Location Date Provider Diagnosis [facility] [address] [place] [address] 06/08/2024 Carly Estrada Plan Of Treatment Next Appt Details Provider Name:Sarahwesley goodrich, 08/30/2024 02:45:00 PM, [address] [place], [address], Progress Notes * Eve PAREDES ADOB:1934 (89 yo F)Acc No.[id number]:06/08/2024 Progress Note Patient:?Eve PAREDES Provider:?Carly Estrada DPM :1935???Age:89 Y???Sex:Female D ate:06/08/2024 Address:[address], [place] Pcp:HI Campbell Subjective: * Chief Complaints: * [...] DPM Date:?0 06/08/2024 Generated for Dandy mccarty/Patric/Macarena on:?07/27/2024 06:00 PM EDT
== END 2024-07-27 16:42 | disposition home or self-care (01) ==
PROVIDERS: PCP Nurse Practitioner Family; Visit Provider Physician Assistant
DX: Z13.9 Encounter for screening, unspecified (principal); N30.00 Acute cystitis without hematuria

== ENCOUNTER 2024-07-27 16:01 | Outpatient (REF) | payer MEDICARE, OTHER, SELFPAY ==
[2024-07-28 11:02] LABS: Appearance Urine Clear; Color Urine Yellow; Glucose Urine UA Negative (Negative); Leukocyte Esterase Urine Small (1+) (Negative); Nitrite Urine Negative (Negative); PH 5.5 (5.0-9.0); Specific Gravity - Urine 1.015 (1.005-1.025); UMIC TRIGGER UACC YES; Urine Blood Negative (Negative); Urine Ketones Negative (Negative); Urine Protein 30 (1+) mg/dL (Neg-Trace)
[2024-07-28 11:47] LABS: Bacteria Urine Trace (None Seen); Hyaline Casts Urine 0-2 /LPF (0-2); RBC Urine 0-2 /HPF (0-2); Squamous Epithelial Cell Urine 0-2 /HPF (0-2); UACC Culture Trigger YES; WBC Urine 0-5 /HPF (0-5)
== END 2024-07-27 16:02 | disposition home or self-care (01) ==
LOC: HO.LAB 16:01
PROVIDERS: PCP Nurse Practitioner Family; Visit Provider Physician Assistant
DX: N30.00 Acute cystitis without hematuria (principal); Z13.9 Encounter for screening, unspecified
CPT/HCPCS: 81001; 81003; 87086; 99212

== ENCOUNTER 2024-07-31 14:28 | Outpatient (AMB) | payer MEDICARE, OTHER, SELFPAY ==
--- NOTE | 2024-07-31 15:20 | AM.OFFWIN_ITS ---
Intake Vital Signs 07/31/24 15:29 Weight 198 lb BP 118/72 Blood Pressure Location Lt brachial Position Sitting Pulse 70 Pulse Source Pulse Oximeter Pulse Oximetry (%) 98 Oxygen Delivery Method Room Air Intake Visit Reasons: EP-abd pain & lower back pain Intake Note: Patient here for abdominal pain and lower back pain. Patient Tobacco Use Status: Former Tobacco user Allergies atorvastatin [From LIPITOR] Allergy (Severe, Verified 07/31/24 15:28) ANGIOEDEMA doxycycline [DOXYCYCLINE] Allergy (Severe, Verified 07/31/24 15:28) ANAPHYLAXIS, ANGIOEDEMA nitrofurantoin [From Macrobid] Allergy (Mild, Verified 07/31/24 15:28) unclear Do you need a note to return to daycare/school/sports/work: No HPI HPI Comments History of Present Illness Details 89 y/o female patient who presents to [facility] walk in clinic with c/o Lower back pain and lower abdominal pain since 07/27. She was evaluated and treated at the walk in clinic for UTI on 07/27. Pt reports no improvement despite being on Abx. Reports prior h/o Diverticulitis where portion of her Colon was dissected. Pt thinks she might have Diverticulitis. Pt points to her right lower abdomen; pain radiates to her right groin. H/o Hyst erectomy, but not sure if she still has Ovaries or not. Denies vaginal symptoms. Denies constipation, diarrhea, nausea or vomiting. [facility] Medical History (Updated 07/31/24 @ 16:45 by Rhonda Pack NP) Low back pain Surgical History History of colon resection History of rectal surgery History of hemiarthroplasty of right hip History of hemiarthroplasty of left hip Hx of appendectomy Hx of hysterectomy Social History Housing: Apartment Patient Tobacco Use Status: Former Tobacco user e-Cigarette/Vaping Use: Never Used service: No Current occupational status: retired Cognitive needs: No Hearing needs: No Vision needs: Yes Review of Systems Const All systems reviewed & are unremarkable except as noted in HPI and below Physical Exam Vital Signs: Last Vital Signs Pulse 70 07/31/24 15:29 BP 118/72 07/31/24 15:29 Pulse Ox 98 07/31/24 15:29 Oxygen Delivery Method Room Air 07/31/24 15:29 Const General: cooperative and no acute distress Nutritional Appearance: obese Orientation/consciousness: patient oriented x3 GI Inspection: Yes Abdominal panniculus present Palpation (GI): Soft to palpation, not firm, Tenderness to palpation present (GI) in the LLQ and suprapubicly, no guarding, not rigid, No hepatosplenomegaly present and no hernias Auscultation: normal bowel sounds Rectal Exam - Female: deferred Other: Pelvic Exam deferred. General: Yes no CVA tenderness Back/Spine/Pelvis Back: no CVA tenderness and back tenderness Thoracic/Lumbar Spine: thoraco-lumbar ROM normal, thoraco-lumbar spasm and lumbar spinal tenderness Neuro General: patient oriented x3, gait normal and moves all extremities Psych Speech and movement: Normal speech and movement present Assessment & Plan Assessment & Plan (1) Lower abdominal pain: Code(s): R10.30 - Lower abdominal pain, unspecified Plan: Pt declined to provide another urine sample Will have Patient f/u with PCP for possible imaging (2) Low back pain: Code(s): M54.50 - Low back pain, unspecified Qualifiers: Chronicity: acute Back pain laterality: bilateral Sciatica presence: without sciatica Qualified Code(s): M54.50 - Low back pain, unspecified Plan: NSAIDs or Acetaminophen for pain relief. Ice/Hot Declined Urine sample Coding Level of Care Code Est Pt Level 4 (65276) Diagnoses Lower abdominal pain R10.30 Acute bilateral low back pain without sciatica M54.50 Chronicity: acute Back pain laterality: bilateral Sciatica presence: without sciatica Time Spent (min) 20
[2024-07-31 15:29] VITALS: BP 118/72; PULSE 70; O2SAT 98
== END 2024-07-31 16:52 | disposition home or self-care (01) ==
PROVIDERS: PCP Nurse Practitioner Family; Visit Provider Nurse Practitioner Family
DX: R10.30 Lower abdominal pain, unspecified (principal); M54.50 Low back pain, unspecified

== ENCOUNTER → 2024-07-31 14:28 | Outpatient (BNVA) | payer MEDICARE, OTHER, SELFPAY | PROVIDERS: PCP Nurse Practitioner Family; Visit Provider Nurse Practitioner Family | DX: R10.30 Lower abdominal pain, unspecified (principal); M54.50 Low back pain, unspecified | CPT/HCPCS: 99212 ==

== ENCOUNTER 2024-08-17 08:52 | Outpatient (AMB) | payer MEDICARE, OTHER, SELFPAY ==
[2024-08-17 09:03] VITALS: BP 136/74; PULSE 72; O2SAT 96; BMI 34.4
--- NOTE | 2024-08-17 09:03 | A.OFFPC_ITS ---
Vital Signs 08/17/24 09:03 Height 5 ft 4 in Weight 200 lb 6 oz BMI 34.4 BP 136/74 Blood Pressure Location Rt brachial Position Sitting Pulse 72 Pulse Source Pulse Oximeter Pulse Oximetry (%) 96 Oxygen Delivery Method Room Air Intake Visit Reasons: Follow up walk-in/abdominal and back pain Allergies atorvastatin [From LIPITOR] Allergy (Severe, Verified 08/17/24 09:03) ANGIOEDEMA doxycycline [DOXYCYCLINE] Allergy (Severe, Verified 08/17/24 09:03) ANAPHYLAXIS, ANGIOEDEMA nitrofurantoin [From Macrobid] Allergy (Mild, Verified 08/17/24 09:03) unclear Tobacco use date assessed: 08/17/24 Last assessed Fall Risk: 08/17/24 Dental Screening Dental Screen Date: 08/17/24 Did you have a dental problem in the last 6 months where you did not have access to dental care?: No HPI Follow up walk-in/abdominal and back pain HPI Details Chief Complaint The patient presents with right inguinal discomfort. History of Present Illness The patient is an 89-year-old female presenting with right inguinal discomfort. She has noticed this discomfort primarily with certain movements, including knee raises and lateral movements of the right lower extremity, which increase the discomfort slightly. pain is predominantly in the morning, which dissipates as the day progresses. She denies symptoms like bulging or redness in the inguinal area, and no severe limitations on her daily activities are reported. Her past medical history includes a recently treated urinary tract infection, which she perceives as relevant to her current symptoms. Examination reveals a good range of motion in the right lower extremity, and there is no reported pain to palpation. Social History - Upcoming relocation to the [facility] a couple of months. Health Maintenance Review of Systems - Musculoskeletal: Reports right inguina l discomfort. Denies bulging or redness. - Back: Reports lower back pain in the [facility]. Physical Exam General: Cooperative, healthy appearing, comfortable, no acute distress and well developed Orientation: Patient oriented x3 Limitations: No limitations Head: Normal to inspection Ears: Hearing grossly normal bilaterally Nose: Normal external nose present Face and sinus: Normal facial exam Eyes: Appearance normal, both eyes and all related structure Skin: No rashes or lesions noted Neuro: Patient oriented x3 Extremities: Normal to inspection, good range of motion of right lower extremity, slight discomfort to right inguinal region with lateral movement of right lower extremity, and wit knee raises, no pain with palpation in this region. Results Plan The patient is experiencing right inguinal discomfort consistent with a muscle strain, which I will address with a referral to physical therapy. No additional action is required for her recently treated urinary tract infection, as she shows no current symptoms. She may take NSAIDs or acetaminophen if discomfort arises. Timely physical therapy is planned given her upcoming relocation. Discussion Notes I discussed with the patient that her right inguinal discomfort is likely due to a muscle strain and not more severe conditions like a hernia, given the lack of bulging or redness. Physical therapy was recommended to improve strength and alleviate discomfort. She consented to this plan and acknowledged understanding of taking anti-inflammatories if the pain persists. Given her upcoming move to the [facility], we agreed to prioritize starting physical therapy sessions beforehand. We will monitor the situation closely and adjust her care plan as needed. Patient Instructions - Attend physical therapy as scheduled t o help alleviate right inguinal discomfort. - Take NSAIDs or acetaminophen if the pa in persists. - Monitor symptoms and seek care if ther e are new or worsening signs, such as swelling or changes in skin color. - Prepare for relocation and ensure cont inuity of care by transferring medical records if necessary. [facility] Medical History (Updated 08/17/24 @ 09:22 by CARL SandraP-EDMAR) Low back pain Surgical History History of colon resection History of rectal surgery History of hemiarthroplasty of right hip History of hemiarthroplasty of left hip Hx of appendectomy Hx of hysterectomy Social History Housing: Apartment Patient Tobacco Use Status: Former Tobacco user e-Cigarette/Vaping Use: Never Used service: No Current occupational status: retired Cognitive needs: No Hearing needs: No Vision needs: Yes Questionnaire PHQ-9 Over the last 2 weeks, how often have you been bothered by any of the following problems? 37473 - PHQ-9 Billing: Patient declined-do not bill Source: Developed by Drs. Fidel Rashid, Ale Clinton, Hank Cox and colleagues, with an educational margo from [employer]. Thrive Questionnaire Date Thrive assessed: 08/17/24 I am a: Patient What is your living situation today?: I have a steady place to live Within the past 12 months, did the food you bought not last and you didn't have the money to get more?: I choose not to answer this question Within the past 12 months, did you worry whether your food would run out before you got money to buy more?: I choose not to answer this question Do you have trouble paying for medicines?: No Do you have trouble getting transportation to medical appointments?: No Do you have trouble paying your heating and electricity bill?: No Do you have trouble taking care of your child, family member or friend?: No Do you have trouble with day-to-day activities such as bathing, preparing meals, shopping, managing finances, etc.?: No Are you currently unemployed and looking for a job?: No Are you interested in more education?: No Currently or been in a relationship where the following occur: No concerns reported THRIVE Score: 0 AUDIT C Alcohol Use Questionnaire (AUDIT-C) 1. How often do you have a drink containing alcohol?: Never 3. How often do you have six or more drinks on one occasion?: Never Total Score: 0 Score Reviewed/Action Taken: Yes CARLOS-7 AMB Questionnaire CARLOS-7 Date CARLOS - 7 assessed: 06/05/24 Source: Developed by Drs. Fidel Rashid, Ale Clinton, Hank Cox and colleagues, with an educational margo from [employer]. Physical exam (Primary Care) Vital Signs: Last Vital Signs Pulse 72 08/17/24 09:03 BP 136/74 08/17/24 09:03 Pulse Ox 96 08/17/24 09:03 Oxygen Delivery Method Room Air 08/17/24 09:03 BMI result Body Mass Index 34.4 Tobacco/Smoking Status: Tobacco use Status Tobacco use date assessed 08/17/24 08/17/24 09:04 Patient Tobacco Use Status Former Tobacco user 08/17/24 09:04 e-Cigarette/Vaping Use Never Used 08/17/24 09:04 Thrive Assessment: Date of Thrive Assessment Date Thrive assessed 08/17/24 08/17/24 09:04 Currently or been in a relationship where the following occur: No concerns reported Coding Level of Care Code Est Pt Level 3 (21815) Diagnoses Inguinal muscle strain S39.013A Assessment & Plan Assessment & Plan (1) Inguinal muscle strain: Code(s): S39.013A - Strain of muscle, fascia and tendon of pelvis, initial encounter Category: Medical Plan . Orders: Orders PT Evaluation and Treatment Today S39.013A - Strain of muscle, fascia and tendon of pelvis, initial encounter
--- OUTSIDE RECORDS SUMMARY | 2024-08-17 09:23 | XMS_ITS ---
[facility] Address [address] [facility] [place] [address] Care Team Providers Care Silk Weaver Name Role Phone Jose Schultz Primary Care Provider Claude CastellonCarly beaver Unavailable [phone] VanitaSarah goodrich Unavailable [phone] Allergies Allergen (clinical drug ingredient) Drug/Non Drug [...] Polyneuropathy due to type 2 diabetes mellitus (164792905) Type 2 diabetes mellitus with diabetic polyneuropathy (E11.42) Active confirmed Vital Signs Height 5 ft 4 in in 05/31/2024 Weight 193 lbs 05/31/2024 BMI 33.12 kg/m2 05/31/2024 Blood pressure systolic 128 mm Hg 05/31/19 25 Blood pressure diastolic 80 mm Hg 025 Encounters Encounter Location Date Provider Diagnosis [facility] [address] [address] 05/31/2024 Sarah Hicks Type 2 diabetes mellitus with diabetic polyneuropathy E11.42 and Tinea unguium B35.1 Assessments Encounter Date Diagnosis (ICD Code) Assessment Notes Treatment Notes Treatment Clinical Notes Section Notes 05/31/2024 Type 2 diabetes mellitus with diabetic polyneuropathy (ICD-10 - E11.42) 05/31/2024 Tinea unguium (ICD-10 - B35.1) Plan Of Treatment Next Appt Details Follow Up: 3 Months, Reason: Provider Name:Carly marie, 09/14/2024 02:15:00 PM, [address] [place], [address], Procedure Notes * Category Sub-Category Detail Notes [...] use of a nail nipper and/or dremel-type wood grinder, to a more viable healthy nail [...] to maintain effectiveness in symptomatic relief - 08632 Keratoma Treatment Parring or Cutting o f [...] instrumentation by the physician of record - 45663 Progress Notes * Shanell PAREDESne ADOB:1934 (89 yo F)Acc No.[id number]:05/31/2024 Progress Note Patient:?Eve PAREDES Provider:?Sarah Hicks DPM :1935???Age:89 Y???Sex:Female D ate:05/31/2024 Address:[address] [place] [address], [address], [place] [facility] Pcp:HI Campbell Subjective: * Chief Complaints: * [...] 1 capsule Orally Once a day [facility] 500 MG Capsule 1 capsule Orally [...] use of a nail nipper and/or dremel-type wood grinder, to a more viable healthy nail [...] to maintain effectiveness in symptomatic relief - 84545.?Keratoma Treatment:?Parring or Cutting of Benign Hyperkeratotic Lesion(s)?(-57) [...] instrumentation by the physician of record - 91776.? * Procedure Codes:?45476 DEBRI DE NAIL, 6 OR MORE, Modifiers: XS 41539 TRIM SKIN LESIONS, OVER 4, Modifiers: XS * Follow Up:?3 Months * Images: * Sign off status: Completed true * Provider:?Sarah Hicks DPM Date:? Generated for Dandy mccarty/Patric/Macarena on:?08/17/2024 09:22 AM EDT History and Physical Notes * HPI [...]
--- OUTSIDE RECORDS SUMMARY | 2024-08-17 09:23 | XMS_ITS ---
Author Organization [facility] Address [address] [place] [address] Care Team Providers Care Recreation Worker Name Role Phone Jose Schultz Primary Care Provider Unav ailable Carly Estrada Unavailable [phone] Encounters Encounter Location Date Provider Diagnosis [address] [address] 06/08/2024 Carly Estrada Plan Of Treatment Next Appt Details Provider Name:Carly marie, 09/14/2024 02:15:00 PM, [address] [place], [address], Progress Notes * Eve PAREDES ADOB:1934 (89 yo F)Acc No.[id number]:06/08/2024 Progress Note Patient:?Eve PAREDES Provider:?Carly Estrada DPM :1935???Age:89 Y???Sex:Female D ate:06/08/2024 Address:[address], [address], [place] Pcp:HI Campbell Subjective: * Chief Complaints: * [...] DPM Date:?0 06/08/2024 Generated for Dandy mccarty/Patric/Macarena on:?08/17/2024 09:23 AM EDT
--- OUTSIDE RECORDS SUMMARY | 2024-08-17 09:23 | XMS_ITS ---
Author Organization [facility] Address [address] [place] [address] Care Team Providers Care Business Process Modeler Name Role Phone Jose Schultz Primary Care Provider Unav Carly Moore Unavailable [phone] REASON FOR VISIT rs appt 08/30/24 Encounters Encounter Location Date Provider Diagnosis [facility] [address] [place] [address] 08/01/2024 Carly Estrada Plan Of Treatment Next Appt Details Provider Name:Carly marie, 09/14/2024 02:15:00 PM, [address] [place], [address], Progress Notes * Eve PAREDES ADOB:1934 (89 yo F)Acc No.[id number]:08/01/2024 Patient:?Eve PAREDES :1935???Age:89 Y???Sex:Female Address:[address], [place], [address] * true * Date:? Generated for Zhaoi lul/Patric/eTransmitting on:?08/17/2024 09:23 AM EDT
--- OUTSIDE RECORDS SUMMARY | 2024-08-17 09:24 | XMS_ITS | Continuity of Care Document ---
Author Organization [facility] Address [address] [place] [address] Care Team Providers Care Profiling Machine Set Up Operator Tool Name Role Phone Lesley MAIN, Jose Keane Primary Care Physician [place] [facility] [place]): [place]/24 [facility] [address] [place] [address] Encounter Type: Triage Allergies, Adverse Reactions, Alerts Substance Criticality Severity [...] Maintenance, 07/08/23 3:27:00 PM EST, ER Tablet, [facility]/pharmacy #[id number], Partial fill upon patient request if the prescription is for a schedule II opioid drug., 165, cm, 07/08/23 14:21:00 EST, Height Start Date: 07/08/23 Status: Ordered Quantity: 60.0 Unit: tablet Repeat number: 6 metFORMIN 500 mg oral tablet 2 tablet = 1,000 mg, By Mouth, 2 times a day, # 360 tablet, 3 Refills, Maintenance, 07/07/24 3:07:00PM EST, Tablet, [facility]/pharmacy #[id number], Partial fill upon patient request if [...] Status: Ordered Repeat number: 1 nystatin topical 904895 u/gm cream 30 Gm, 0 Refill(s), 1 [...] Refills, Maintenance, 09/09/23 8:47:00 AM EDT, Solution, [facility], Partial fill upon patient [...] Refills, Maintenance, 07/19/24 9:37:00 AM EDT, Solution, [facility], Partial fill upon patientrequest [...] Team Personnel Name: Madisyn Cabral RN Position: [facility] Nurse Member Role: Primary Care Nurse Name: Jose Sutton NP Position: Reference Physician Member Role: PCP Address: [address] [place] [address] Telecom: Name: Nataliya Davalos RN Position: [facility] AMB Nurse Member Role: Primary Care Nurse Name: Vanesa Mancia RN Position: [facility] RN Member Role: Primary Care Nurse Name: Sherif Christian RN Position: [facility] RN Member Role: Primary Care Nurse Care Team Related Persons Name: JUAN ALBERTO [place] Name: MILAGROS HAN Name: JOEL PAREDES Name: JOEL PAREDES Insurance Providers Guarantor name: MARVIN PAREDES Health Plan Information #: 1 Payer: MEDICARE PART B OUTPT Member Number: NA Policy Number: NA Group Number: NA Health Plan Information #: 2 Payer: [facility] Member Number: NA Policy Number: NA Group Number: NA
--- OUTSIDE RECORDS SUMMARY | 2024-08-17 09:24 | XMS_ITS | Patient Health Record ---
Author Organization [facility] Address [address] [place] [address] Care Team Providers Care Machine Bobbin Winder Name Role Phone Jose Schultz Primary Care Provider Carly Christensen Unavailable [phone] Vishnu Forbse Unavailable [phone] Sarah Hicks Unavailable [phone] Allergies Allergen (clinical drug ingredient) Drug/Non Drug [...] Polyneuropathy due to type 2 diabetes mellitus (599349480) Type 2 diabetes mellitus with diabetic polyneuropathy (E11.42) Active confirmed Problem Neurologic disorder associated with type II diabetes mellitus (359731139) 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 confirmed Problem Localized, primary osteoarthritis of the ankle and/or foot (576015426) Primary osteoarthritis, left ankle and foot (M19.072) Active confirmed Problem Acquired hammer toe of right foot (6981360243045545 ) Other hammer toe(s) (acquired), right foot (M20.41) Active confirmed Problem Acquired hammer toe of left foot (0687310268431581 ) Other hammer toe(s) (acquired), left foot (M20.42) Active confirmed Vital Signs Blood pressure diastolic 80 mm Hg 05/31/2024 Height 5 ft 4 in in 05/31/2024 Blood pressure systolic 128 mm Hg 05/31/2024 Weight 193 lbs 05/31/2024 BMI 33.12 kg/m2 05/31/2024 Procedures Procedure Date Ordered Date Performed Result Body Sit e 37282-IQISETL NAIL, 6 OR MORE 02/23/2024 N/A 51538-SMYJ SKIN LESIONS, 2 TO 4 02/23/2024 N/A Encounters Encounter Location Date Provider Diagnosis [address] [address] 11/10/2023 Vishnu Forbes Pain in right foot M79.671 ; Ingrowing nail L60.0 ; Pain in left foot M79.672 ; Tinea unguium B35.1 ; Type 2 diabetes mellitus with other diabetic neurological complication E11.49 ; Pain in right toe(s) M79.674 ; Metatarsalgia, left foot M77.42 ; Pain in left toe(s) M79.675 and Primary osteoarthritis, left ankle and foot M19.[address] [address] 02/23/2024 Carly Estrada Tinea unguium B35.1 and Type 2 diabetes mellitus with other diabetic neurological complication E11.[address] [address] 05/31/2024 Sarah Kurt Type 2 diabetes mellitus with diabetic polyneuropathy E11.42 and Tinea unguium B35.[address] [address] 02/08/2024 Carly Estrada [address] [address] 03/17/2024 Carly Estrada [address] [address] 08/01/2024 Carly Estrada Assessments Encounter Date Diagnosis (ICD Code) Assessment Notes Treatment Notes Treatment Clinical Notes Section Notes 11/10/2023 Pain in right foot (ICD-10 - M79.671) 02/23/2024 Tinea unguium (ICD-10 - B35.1) 02/23/2024 Type 2 diabetes mellitus with other diabetic neurological complication (ICD-10 - E11.49) 05/31/2024 Type 2 diabetes mellitus with diabetic polyneuropathy (ICD-10 - E11.42) 05/31/2024 Tinea unguium (ICD-10 - B35.1) 11/10/2023 Ingrowing nail (ICD-10 - L60.0) 11/10/2023 Pain in left foot (ICD-10 - M79.672) 11/10/2023 Tinea unguium (ICD-10 - B35.1) 11/10/2023 Type 2 diabetes mellitus with other diabetic neurological complication (ICD-10 - E11.49) 11/10/2023 Pain in right toe(s) (ICD-10 - M79.674) 11/10/2023 Metatarsalgia, left foot (ICD-10 - M77.42) 11/10/2023 Pain in left toe(s) (ICD-10 - M79.675) 11/10/2023 Primary osteoarthritis, left ankle and foot [...] X ray : Foot, left 3V 02/28/2018 21500-DGEJJOH NAIL, 6 OR MORE 02/28/2018 43763-MOFFNPA NAIL, 6 OR MORE 11/18/2017 88985-KLZMBYP NAIL, 6 OR MORE 02/23/2024 11476-ZNNPXMT NAIL, 6 OR MORE 02/19/2011 11972-IBFHBCF NAIL, 6 OR MORE 06/10/2011 44627-CZYYJNG NAIL, 6 OR MORE 01/18/2012 47912-MRDTPVO NAIL, 6 OR MORE 04/18/2012 74457-FZNYGDT NAIL, 6 OR MORE 11/09/2011 07873-SVDNJWU NAIL, 6 OR MORE 07/18/2012 01838-QHUUJJU NAIL, 6 OR MORE 01/02/2013 36346-DYWDBYN NAIL, 6 OR MORE 04/03/2013 51921-NOKNOGE NAIL, 6 OR MORE 07/31/2013 11856-OPFPPXD NAIL, 6 OR MORE 10/23/2013 60397-ULBPONX NAIL, 6 OR MORE 01/10/2014 01818-HYGDUUE NAIL, 6 OR MORE 03/29/2014 95948-UTTPCBQ NAIL, 6 OR MORE 06/07/2014 45599-YQYUDRZ NAIL, 6 OR MORE 08/20/2014 94821-SZUWTFI NAIL, 6 OR MORE 11/15/2014 70509-YCJQEIC NAIL, 6 OR MORE 04/11/2015 43416-FVBRJFV NAIL, 6 OR MORE 07/11/2015 55012-QAFXPWY NAIL, 6 OR MORE 10/21/2015 18292-HVCZFXI NAIL, 6 OR MORE 02/10/2016 65825-HGRJMIZ NAIL, 6 OR MORE 06/15/2016 78939-FWFLKVV NAIL, 6 OR MORE 10/12/2016 91582-GUGIPOI NAIL, 6 OR MORE 02/11/2017 20173-REJAKXG NAIL, 6 OR MORE 06/14/2017 66716-NRYJTZW NAIL, 6 OR MORE 09/13/2017 31174-Blgb Destruction, 1-14 02/19/2011 55061-Abia Destruction, 1-14 01/18/2012 03332-Zlnb Destruction, 1-14 06/10/2011 49759-Jyor Destruction, 1-14 08/31/2011 99034-Btvh Destruction, 1-14 11/09/2011 88822-Kmgsvdqb Plate 11/09/2011 06634-Uvtjgkqq Plate 08/31/2011 64075-Ldbowlli Plate 06/10/2011 60386-Vzfejpas Plate 01/18/2012 59224-Fleqsrli Plate 07/18/2012 65199-Xgpsrjno Plate 04/18/2012 39706-Auqfhhve Plate 01/02/2013 08991-Kqvmykeu Plate 07/31/2013 31102-Aidtgrud Plate 04/03/2013 49161-Ldwylkuf Plate 03/29/2014 70851-Cavjejgb Plate 05/24/2013 30480-Ezcckpzi Plate 01/10/2014 79616-Pvyryypm Plate 10/23/2013 09149-Gmwgelcy Plate 06/14/2017 09654-Mpsamgyu Plate 02/11/2017 13705-Xtzkhurj Plate 03/25/2015 72585-Rokhgjpr Plate 11/15/2014 00280-Aevrtmun Plate 08/20/2014 25870-Lahtyghz Plate 06/07/2014 25151-Zvvkpqwr Plate 11/18/2017 81771-Ohazoham Plate Each Additional 28826-Xtjnoobi Plate Each Additional 04568-Tmxiatvj Plate Each Additional 01/2015 10409-Iwsoxzdc Plate Each Additional 51872-Hbbkmqtn Plate Each Additional 51642-Jpabczuv Plate Each Additional 70971- Debride <25 sq cm 04/11/2015 62196-BUOO SKIN LESIONS, OVER 4 11/16/19 15 11387-BSZZ SKIN LESIONS, OVER 4 08/21/19 15 21431-VLQH SKIN LESIONS, OVER 4 06/07/19 15 82819-KYUY SKIN LESIONS, OVER 4 02/12/20 17 02619-BYZT SKIN LESIONS, OVER 4 09/14/19 18 85538-WPLK SKIN LESIONS, OVER 4 06/15/19 17 32099-XHHG SKIN LESIONS, OVER 4 10/13/19 17 91416-EVEP SKIN LESIONS, OVER 4 04/18/20 12 40945-JRDD SKIN LESIONS, OVER 4 07/19/19 13 13765-TNIX SKIN LESIONS, OVER 4 01/03/20 13 88305-NHAZ SKIN LESIONS, OVER 4 04/03/20 13 45692-EWDZ SKIN LESIONS, OVER 4 08/01/19 14 40396-NMPS SKIN LESIONS, OVER 4 03/29/20 14 63588-NLYX SKIN LESIONS, OVER 4 10/24/19 14 67288-GCSX SKIN LESIONS, OVER 4 01/11/20 14 93144-GFCB SKIN LESIONS, OVER 4 06/05/19 21 37013-RCSY SKIN LESIONS, OVER 4 10/03/19 21 78369-ZBUJ SKIN LESIONS, 2 TO 4 01/07/20 21 81516-HDKP SKIN LESIONS, 2 TO 4 04/14/20 21 97621-QRIU SKIN LESIONS, 2 TO 4 07/29/19 22 41510-IZIF SKIN LESIONS, 2 TO 4 02/23/20 24 19099-UFIT SKIN LESIONS, 2 TO 4 02/29/20 18 61603-MSQT SKIN LESIONS, 2 TO 4 09/02/19 19 56319-GBTO SKIN LESIONS, 2 TO 4 12/30/19 19 85832-XCOL SKIN LESIONS, 2 TO 4 04/26/20 19 99281-TFRV SKIN LESIONS, 2 TO 4 07/31/19 20 92223-ZPYZ SKIN LESIONS, 2 TO 4 12/04/19 20 79884-JRMC SKIN LESIONS, 2 TO 4 02/05/20 20 68486-RBAP SKIN LESIONS, 2 TO 4 11/19/19 18 52369-REEM SKIN LESIONS, 2 TO 4 02/10/20 16 95143-GIRK SKIN LESIONS, 2 TO 4 10/21/19 16 38239-ZUVL SKIN LESIONS, 2 TO 4 07/11/19 16 18827-GEMV SKIN LESIONS, 2 TO 4 06/14/19 18 67973-GTSH SKIN LESIONS, 2 TO 4 04/11/20 15 81937- Rhianna Herediaot 11/09/2017 89333- Nail Unit Biopsy 01/17/2018 27936- Nail Unit Biopsy 09/13/2017 Next Appt Details Provider Name:Carly Castellonjoleen marie, 09/14/2024 02:15:00 PM, [address] [place] [address], [phone], Insurance Providers Payer Name Payer Address Payer Phone Subscriber Number Group Number Insured Name Patient Relationship to Insured Coverage Start Date Coverage End Date Medicare National [employer] [address] [place] [phone] [id number] Eve Musa Self - patient is the insured [employer] [address] [place] [address] [id number] Eve Musa Self - patient is the insured Medical (General) History Medical History History ICD Code measles hypertension diverticulitis chicken pox Cholesterol Arthritis Anxiety disorder type II diabetes Cataracts Surgical History Surgery Date(Month/Year) colon/intestinal surgery 2006 hysterectomy 1965 tubal ligation 1956 Ostectomy L3rdMT, HT L2nd,3rd 10/28/17 cataract surgery Hospitalization History Reason Date(Month/Year) [facility] - broke hip/pt fell 04/28/2018 [facility] pt fell from a ladder and hurt tailbone 2016
== END 2024-08-17 09:25 | disposition home or self-care (01) ==
LOC: HO.HMCC 08:52
PROVIDERS: PCP Nurse Practitioner Family; Visit Provider Nurse Practitioner Family
DX: S39.013A Strain of muscle, fascia and tendon of pelvis, initial encounter (principal)

== ENCOUNTER → 2024-08-17 08:52 | Outpatient (BNVA) | payer MEDICARE, OTHER, SELFPAY | PROVIDERS: PCP Nurse Practitioner Family; Visit Provider Nurse Practitioner Family | DX: S39.013A Strain of muscle, fascia and tendon of pelvis, initial encounter (principal); M54.9 Dorsalgia, unspecified; X58.XXXA Exposure to other specified factors, initial encounter; Y93.9 Activity, unspecified; Y92.9 Unspecified place or not applicable; Y99.9 Unspecified external cause status | CPT/HCPCS: 99212 ==